=== PATIENT | female | born 1995 | race Caucasian/White ===

== ENCOUNTER 2017-04-03 10:02 | Emergency (ER) | payer OTHER ==
[~2017-04-03] VITALS: Ht 149.9 cm; Wt 45.0 kg
[2017-04-03 10:17] VITALS: Ht 149.9 cm; Wt 45.0 kg
[2017-04-03] MEDS ORDERED: ACETAMINOPHEN 500 MG TAB PO STA (12:10)
--- NOTE | 2017-04-03 12:17 | ERD ---
ER Documentation Chief Complaint Date/Time DATE: 04/03/17 TIME: 12:14 Chief Complaint PELVIC PAIN , 9 WEEKS PREG , LMP 01/14/17 HPI This 21-year-old female who presents to the emergency department today complaining of pelvic pain for the past 3 weeks. Patient states the pain is worse with walking. States she also has a low back pain. States she is approximate 10 weeks . States she saw her [facility] clinic and was told that was normal and had a normal ultrasound. States she has some nausea but no vomiting. She is not taking any medication for the pain because "I was told was normal". Denies any vaginal bleeding. Denies any fevers or chills, dysuria. ROS All systems reviewed and are negative except as per history of present illness. Medications Home Meds Active Scripts Acetaminophen* (Tylophen*) 500 Mg Capsule, 1 CAP PO Q6H Y for PAIN AND OR ELEVATED TEMP, #30 CAP Prov:NICK AZEVEDO PA-C 04/03/17 Allergies Allergies: Coded Allergies: No Known Drug Allergies (Verified Allergy, Unknown, 01/28/15) PMhx/Soc Hx Alcohol Use: No Hx Substance Use: No Hx Tobacco Use: No Physical Exam Vitals Vital Signs Date Time Temp Pulse Resp B/P Pulse Ox O2 Delivery O2 Flow Rate FiO2 04/03/17 10:17 98.1 102 18 131/70 98 Physical Exam Const: No acute distress Head: Atraumatic Eyes: Normal Conjunctiva ENT: Normal External Ears, Nose and Mouth. Neck: Full range of motion..~ No meningismus. Resp: Clear to auscultation bilaterally Cardio: Regular rate and rhythm, no murmurs Abd: Soft, suprapubic tenderness non distended. Normal bowel sounds. No right lower quadrant pain. No tenderness at McBurney's Skin: No petechiae or rashes Back: Lumbar spine midline tenderness with bilateral paraspinal tenderness. No CVA tenderness. Ext: No cyanosis, or edema Neur: Awake and alert Psych: Normal Mood and Affect Result Diagram: 04/03/17 1245 Results 24 hrs Laboratory Tests Test 04/03/17 12:40 04/03/17 12:45 Urine Color LT. YELLOW Urine Clarity CLEAR Urine pH 6.0 Urine Specific [place] >=1.030 Urine Ketones 3+ Urine Nitrite NEGATIVE Urine Bilirubin NEGATIVE Urine Urobilinogen 0.2 E.U./dL Urine Leukocyte Esterase NEGATIVE Urine Microscopic RBC 2-5/HPF Urine Microscopic WBC 5-10/HPF Urine Epithelial Cells MODERATE Urine Bacteria MANY Urine Hemoglobin NEGATIVE Urine Glucose NEGATIVE% Urine Total Protein 1+ White Blood Count 6.510^3/ul Red Blood Count 4.1810^6/ul Hemoglobin 12.5g/dl Hematocrit 37.4% Mean Corpuscular Volume 89.5fl Mean Corpuscular Hemoglobin 29.9pg Mean Corpuscular Hemoglobin Concent 33.4g/dl Red Cell Distribution Width 14.1% Platelet Count 89045^3/UL Mean Platelet Volume 10.2fl Neutrophils % 80.1% Lymphocytes % 13.7% Monocytes % 4.6% Eosinophils % 0.9% Basophils % 0.5% Nucleated Red Blood Cells % 0.0/100WBC Neutrophils # 5.210^3/ul Lymphocytes # 0.910^3/ul Monocytes # 0.310^3/ul Eosinophils # 0.110^3/ul Basophils # 0.010^3/ul Nucleated Red Blood Cells # 0.010^3/ul Beta HCG, Quantitative 71308.0mIU/ml Current Medications Medications (Trade) Dose Ordered Sig/Althea Route PRN Reason Start Time Stop Time Status Last Admin Dose Admin Acetaminophen (Tylenol Tab) 500 mg ONCE STAT PO 04/03/17 12:10 04/03/17 12:12 DC 04/03/17 12:39 DIAGNOSTIC IMAGING REPORT Patient: JAYLA BALDWIN : 1995 Age: 21 Sex: F MR #: [id number] DOS: 04/03/17 1210 Ordering MD: NICK AZEVEDO PA-C Location: E Room/Bed: PROCEDURE: US Obstetric less than 14 weeks. CLINICAL INDICATION: , pelvic pain TECHNIQUE: Transabdominal imaging of the pelvis was performed. Images are reviewed on a high-resolution PACS workstation. COMPARISON: None available FINDINGS: Single intrauterine gestation is identified. heart rate is 168 bpm. [place]-rump length = 4.96 cm. Gestational age is 11 weeks 2 days and DANITA is 10/21/2017 by ultrasound criteria. Gestational age is 11 weeks 4 days and DANITA is 10/19/2017 by LMP. Bilateral ovaries are obscured by bowel gas. No adnexal mass or pelvic free fluid is seen. IMPRESSION: 1. Single live intrauterine with an estimated gestational age of 11 weeks 2 days by ultrasound criteria, as above. RPTAT: AA .Johnny Bradley MD, MD Date Time Electronically viewed and signed by .Johnny Bradley MD, MD on 04/03/2017 12: 47 .R/ CC: NICK AZEVEDO PA-C Procedures/[facility] This 21-year-old female who presents the emergency department today for pelvic pain for the past 3 weeks that is worse with walking as well as some low back pain patient indicates she is presently 10 weeks . Patient is afebrile and otherwise well-appearing however given patient 10 weeks I did obtain a complete OB workup. Laboratory work shows no elevated white blood cell count. She is not anemic. Platelets are within normal limits. UA is negative for infection Rh status O+ Beta quant hCG 19379.0 Ultrasound shows a single live intrauterine with estimated gestational age of 11 weeks and 2 days by ultrasound criteria. There are no adnexal masses or pelvic free fluid. Bilateral ovaries are obscured by bowel gas. heart rate is 168. Patient has pelvic pain of uncertain etiology. Low suspicion for ectopic , tubo-ovarian abscess, ovarian torsion. Patient has no right lower quadrant pain and no tenderness McBurney's. Low suspicion for acute surgical abdomen her symptoms may be related to related pains given her back pain as well. Patient was given Tylenol here in the emergency department and pain improved. She declined any medication for nausea or vomiting stating that she had some at home. Patient instructed to follow back up with her [facility] At this time the patient is stable for discharge and outpatient management. Patient should follow up with their PCP in the next 1-2 days. They may return to the emergency department sooner for any persistent or worsening of symptoms. Patient understood and agreed with the plan. Departure Diagnosis: Primary Impression: Pelvic pain during in first trimester, antepartum Condition: Fair NICK AZEVEDO. PA-C April 03, 2017 12:17
--- NOTE | 2017-04-03 12:48 | RADRPT ---
PROCEDURE: US Obstetric less than 14 weeks. CLINICAL INDICATION: , pelvic pain TECHNIQUE: Transabdominal imaging of the pelvis was performed. Images are reviewed on a high-reso [employer] PACS workstation. COMPARISON: None available FINDINGS: Single intrauterine gestation is identified. heart rate is 168 bpm. [place]-rump length = 4.96 cm. Gestational age is 11 weeks 2 days and DANITA is 10/21/2017 by ultrasound criteria. Gestational age is 11 weeks 4 days and DANITA is 10/19/2017 by LMP. Bilateral ovaries are obscured by bowel gas. No adnexal mass or pelvic free fluid is seen. IMPRESSION: 1. Single live intrauterine with an estimated gestational age of 11 weeks 2 days by ultra sound criteria, as above. RPTAT: AA .Johnny Bradley MD, Date Time Electronically viewed and signed by .Johnny Bradley MD, on 04/03/2017 12:47 .R/
[2017-04-03 12:56] LABS: ADD SCAN DIFF NO
[2017-04-03 12:58] LABS: BASOPHILS % 0.5 % (0.0-2.0); EOSINOPHILS # 0.1 10^3/ul (0.0-0.5); EOSINOPHILS % 0.9 % (0.0-7.0); HEMATOCRIT 37.4 % (37.0-47.0); HEMOGLOBIN 12.5 g/dl (12.0-16.0); LYMPHOCYTES # 0.9 10^3/ul (0.8-2.9); LYMPHOCYTES % 13.7 % (15.0-51.0); MEAN CORPUSCULAR HEMOGLOBIN 29.9 pg (29.0-33.0); MEAN CORPUSCULAR HGB CONC 33.4 g/dl (32.0-37.0); MEAN CORPUSCULAR VOLUME 89.5 fl (82.0-101.0); MEAN PLATELET VOLUME 10.2 fl (7.4-10.4); MONOCYTE # 0.3 10^3/ul (0.3-0.9); MONOCYTES % 4.6 % (0.0-11.0); NEUTROPHIL # 5.2 10^3/ul (1.6-7.5); NEUTROPHILS % 80.1 % (39.0-77.0); PLATELET COUNT 290 10^3/UL (140-415); RED BLOOD COUNT 4.18 10^6/ul (4.20-5.40); RED CELL DISTRIBUTION WIDTH 14.1 % (11.5-14.5); WHITE BLOOD COUNT 6.5 10^3/ul (4.8-10.8)
[2017-04-03 12:58] LABS: ADD UMIC YES; URINE BILIRUBIN (Dip) NEGATIVE (NEGATIVE); URINE BLOOD (Dip) NEGATIVE (NEGATIVE); URINE COLOR LT. YELLOW (YELLOW); URINE GLUCOSE (Dip) NEGATIVE (NEGATIVE); URINE KETONES (Dip) 3+ (NEGATIVE); URINE LEUKOCYTE ESTERASE (Dip) NEGATIVE (NEGATIVE); URINE NITRITE (Dip) NEGATIVE (NEGATIVE); URINE TOTAL PROTEIN (Dip) 1+ (NEGATIVE); URINE UROBILINOGEN (Dip) 0.2 E.U./dL (0.1-1.0)
[2017-04-03 13:07] LABS: BACTERIA,URINE MANY
[2017-04-03] MEDS ORDERED: ACET500C5 PO (14:27)
== END 2017-04-03 14:38 | disposition home or self-care (01) ==
LOC: FTE 10:02
DX: O26.891 Other specified pregnancy related conditions, first trimester (principal); R10.2 Pelvic and perineal pain; Z3A.11 11 weeks gestation of pregnancy
CPT/HCPCS: 36415; 76801; 81001; 84702; 85025; 86900; 86901; Z7502; Z7610; 81003

== ENCOUNTER 2017-08-21 10:08 | Inpatient (IN) | payer OTHER ==
[~2017-08-21] VITALS: Ht 177.8 cm; Wt 87.7 kg
[~2017-08-21 10:08] MED LIST: ACET500C5 PO
[2017-08-21 10:24] VITALS: BP 110/55; PULSE 84; RESP 20; BMI 23.1
--- NOTE | 2017-08-21 10:35 | RADRPT ---
PROCEDURE: OB ultrasound for biophysical profile CLINICAL INDICATION: Contractions TECHNIQUE: Multiple sonographic images of the pelvis were obtained. Transabdominal views of the g ravid uterus are available for review. The images were reviewed on a PACS workstation. COMPARISON: None FINDINGS: breathing movement = 2/2 tone = 2/2 motion = 2/2 BRITTNI = 2/2 BRITTNI = 14.4 cm Single live intrauterine with cardiac activity of 148 bpm. position is cephal ic. The placenta is posterior. IMPRESSION: 1. Single live intrauterine gestation. 2. Biophysical profile = 8. 3. BRITTNI = 14.4 cm. RPTAT: HH .Zuleima Mora MD, MD Date Time Electronically viewed and signed by .Zuleima Mora MD, on 08/21/2017 10:35 .G/
[2017-08-21 10:53] LABS: ADD UMIC YES; UR ASCORBIC ACID NEGATIVE (NEGATIVE); UR BACTERIA FEW /HPF (NONE SEEN); UR BILIRUBIN (Dip) NEGATIVE (NEGATIVE); UR BLOOD (Dip) NEGATIVE (NEGATIVE); UR CLARITY SLIGHTLY CLOUDY (CLEAR); UR COLOR YELLOW (YELLOW); UR GLUCOSE (Dip) NEGATIVE (NEGATIVE); UR KETONES (Dip) NEGATIVE (NEGATIVE); UR LEUKOCYTE ESTERASE (Dip) 2+ Leu/ul (NEGATIVE); UR MUCUS FEW /HPF (NONE SEEN); UR NITRITE (Dip) NEGATIVE (NEGATIVE); UR RBC 1 /HPF (0-5); UR SPECIFIC GRAVITY (Dip) 1.008 (1.003-1.030); UR SQUAMOUS EPITHELIAL CELL FEW /HPF (FEW); UR TOTAL PROTEIN (Dip) NEGATIVE (NEGATIVE); UR UROBILINOGEN (Dip) NEGATIVE (NEGATIVE)
--- NOTE | 2017-08-21 12:18 | RADRPT ---
PROCEDURE: CERVICAL LENGTH ULTRASOUND CLINICAL INDICATION: Contractions at 31 weeks gestational age. TECHNIQUE: Trans-vaginal imaging of the cervical canal was performed utilizing potts-scale imaging. Sagittal and transverse images were obtained. Trans-abdominal images were also obtained. The tonia ges were reviewed on a PACS workstation. COMPARISON: None. FINDINGS: There is a single live intrauterine . heart rate is 151 beats per minute. Position is cephalic and placenta is posterior grade 1. There is no placenta previa. The cervix is closed with a length of 0.9 cm. IMPRESSION: 1. Cervical length is 0.9 cm. RPTAT: QQ .Eduardo Shen MD, MD Date Time Electronically viewed and signed by .Eduardo Shen MD, on 08/21/2017 12:18 .R/
--- NOTE | 2017-08-21 12:41 | TRIAGE ---
OB Triage Datetime Report Generated by CPN: 08/21/2017 12:41 Datetime: 08/21/2017 12:38 Labor Evaluation Frequency: IRREG Monitor Mode: External Quality: Mild Resting Tone [place]: Relaxed Heart Rate FHR Baseline Rate: 145 Monitor Mode: External US FHR Baseline Changes: No Baseline Change Variability: Moderate 6-25 bpm Accelerations: 15X15 Decelerations: None Category: Category I Datetime: 08/21/2017 12:35 Stage of : Antepartum Assessment Type: Admission Assessment Maternal Assessment Level of Consciousness: Fully Conscious DTR's/Clonus: DTRs 2+; No Clonus Headache: Denies Blurred Vision: No Respiratory Effort: Unlabored; Regular Rhythm; Equal Expansion Breath Sounds, Left: Clear and Equal Breath Sounds, Right: Clear and Equal Nausea/Vomiting: Denies RUQ Epigastric Pain: Denies Lower Extremities Edema: None Degree: None Upper Extremities Edema: None Degree: None Facial Edema: None Fall Risk Assessment History of Falling: (0) No Secondary Diagnosis: (0) No Ambulatory Aid: (0) Bedrest/Nurse Assist IV Therapy: (20) Yes Gait: (0) Normal/Bedrest/Immobile Mental Status: (0) Oriented to Own Ability Fall Score: 20 Fall Risk Score Definition: No Risk: No action required Datetime: 08/21/2017 12:31 Time of Arrival: 08/21/2017 10:00 EGA: 31.6 Arrived By: Ambulatory Arrived From: Home Chief Complaint: CRAMPING Movement: Present Contractions: Irregular Vaginal Bleeding: None Vaginal Discharge: Denies Recent Sexual Intercouse: Denies Time Provider Notified: 08/21/2017 11:45 Provider Notified: DR. NGUYEN Initial Plan: CL, BPP , BRITTNI NST Datetime: 08/21/2017 12:24 Labor Evaluation Frequency: IRREG Monitor Mode: External Duration (sec)2399: 40-70 Quality: Mild Pattern: Normal: <= 5 Contractions in 10 Minutes Resting Tone [place]: Relaxed Heart Rate FHR Baseline Rate: 150 Monitor Mode: External US Variability: Moderate 6-25 bpm Accelerations: 15X15 Decelerations: None Category: Category I Datetime: 08/21/2017 10:27 Stage of : OB Triage Assessment Type: Triage Maternal Assessment Level of Consciousness: Fully Conscious DTR's/Clonus: DTRs 2+; No Clonus Headache: Denies Blurred Vision: No Respiratory Effort: Unlabored; Regular Rhythm; Equal Expansion Breath Sounds, Left: Clear and Equal Breath Sounds, Right: Clear and Equal Nausea/Vomiting: Denies RUQ Epigastric Pain: Denies Lower Extremities Edema: None Degree: None Upper Extremities Edema: None Facial Edema: None Temperature Route: Axillary Fall Risk Assessment History of Falling: (0) No Secondary Diagnosis: (0) No Ambulatory Aid: (0) Bedrest/Nurse Assist IV Therapy: (0) No Gait: (0) Normal/Bedrest/Immobile Mental Status: (0) Oriented to Own Ability Fall Score: 0 Fall Risk Score Definition: No Risk: No action required
[2017-08-21] MEDS: LACTATED RINGER'S 1,000 ML IV SCH ×2 (12:51→20:32)
[2017-08-21] MEDS ORDERED: AL HYDROX/MG HYDROX/SIMETH 30 ML CUP PO PRN (13:00)
[2017-08-21] MEDS ORDERED: ONDANSETRON 4 MG INJ IV PRN (13:00)
[2017-08-21] MEDS ORDERED: ACETAMINOPHEN 325 MG TAB PO PRN (13:00)
[2017-08-21] MEDS ORDERED: MAGNESIUM SULFATE 4 GM/100 ML 100 ML IV ONE (13:00)
[2017-08-21] MEDS: AMPICILLIN 2 GM/NS (PMX) 100 ML IV SCH ×2 (13:14→18:08)
[2017-08-21] MEDS: BETAMET NA PHOS/AC(6 MG/ML) 5ML INJ IM SCH (13:18)
[2017-08-21] MEDS: MAGNESIUM SULFATE 20 GM/500 ML 500 ML IV SCH (13:32)
[2017-08-21 15:31] LABS: ALBUMIN 3.4 g/dl (3.3-4.9); ALBUMIN/GLOBULIN RATIO 1.06; BILIRUBIN,INDIRECT 0.7 mg/dl (0-1.1); BILIRUBIN,TOTAL 0.7 mg/dl (0.2-1.3); CALCIUM 7.9 mg/dl (8.4-10.2); CREATININE 0.42 mg/dl (0.44-1.00); TOTAL PROTEIN 6.6 g/dl (6.1-8.1)
[2017-08-21 15:48] LABS: BARBITURATES Negative (NEGATIVE); BENZODIAZEPINES Negative (NEGATIVE); CANNABINOIDS Negative (NEGATIVE); COCAINE Negative (NEGATIVE); OPIATES Negative (NEGATIVE)
[2017-08-21 17:13] LABS: BASOPHILS % 0.2 % (0.0-2.0); EOSINOPHILS # 0.1 10^3/ul (0.0-0.5); EOSINOPHILS % 1.8 % (0.0-7.0); HEMATOCRIT 30.9 % (37.0-47.0); HEMOGLOBIN 10.3 g/dl (12.0-16.0); LYMPHOCYTES # 1.2 10^3/ul (0.8-2.9); LYMPHOCYTES % 21.2 % (15.0-51.0); MEAN CORPUSCULAR HEMOGLOBIN 30.2 pg (29.0-33.0); MEAN CORPUSCULAR HGB CONC 33.3 g/dl (32.0-37.0); MEAN CORPUSCULAR VOLUME 90.6 fl (82.0-101.0); MEAN PLATELET VOLUME 11.3 fl (7.4-10.4); MONOCYTE # 0.4 10^3/ul (0.3-0.9); MONOCYTES % 6.9 % (0.0-11.0); NEUTROPHIL # 3.8 10^3/ul (1.6-7.5); NEUTROPHILS % 69.7 % (39.0-77.0); PLATELET COUNT 232 10^3/UL (140-415); RED BLOOD COUNT 3.41 10^6/ul (4.20-5.40); RED CELL DISTRIBUTION WIDTH 12.9 % (11.5-14.5); WHITE BLOOD COUNT 5.5 10^3/ul (4.8-10.8)
--- NOTE | 2017-08-21 18:06 | HP ---
Date/Time of Note Date/Time of Note DATE: 08/21/17 TIME: 18:05 OB - History Hx of Present Free Text/Dictation pt co of ucx q 10 min nmo LOF no bleeding pmh non psh c/s x2 : 3 Para: 2 Care: Good Care Ultrasounds: Normal mid trimester US Past Family/Social History * Past Medical, Surgical, Family and Obstetric Histories reviewed from chart. OB Admission Exam Vital Signs Vital Signs Vital Signs Date Time Temp Pulse Resp B/P Pulse Ox O2 Delivery O2 Flow Rate FiO2 08/21/17 10:24 98.1 84 20 110/55 Room Air Physical Exam HEENT: WNL Heart: Rhythm Normal Extremities: Normal Reflexes: Normal Last 72 hours Lab Results CBC & BMP 08/21/17 14:00 Liver Function Test 08/21/17 14:00 Alanine Aminotransferase (ALT/SGPT) 29 Albumin 3.4 Alkaline Phosphatase 134 H Aspartate Amino Transf (AST/SGOT) 16 Direct Bilirubin 0.00 Total Protein 6.6 OB Assessment/Plan Reason for admission: labor Plan: Other Other plan: iup 31.6 with ucx and short cervix .9 cm admit for laboer, mgso4, bms and amp ho of c/section X2 RANDI NGUYEN MD Aug 21, 2017 18:06
[2017-08-22] MEDS: AMPICILLIN 2 GM/NS (PMX) 100 ML IV SCH ×4 (01:19→18:16)
[2017-08-22] MEDS: MAGNESIUM SULFATE 20 GM/500 ML 500 ML IV SCH ×2 (01:22→10:03)
[2017-08-22] MEDS: LACTATED RINGER'S 1,000 ML IV SCH ×2 (02:21→18:17)
[2017-08-22] MEDS: FERROUS SULFATE (EC) 325 MG TAB PO SCH (09:08)
[2017-08-22] MEDS: PRENATAL VITAMIN PO SCH (09:08)
[2017-08-22] MEDS: BETAMET NA PHOS/AC(6 MG/ML) 5ML INJ IM SCH (13:37)
[2017-08-22 19:17] VITALS: Ht 177.8 cm; Wt 87.7 kg
--- NOTE | 2017-08-22 19:39 | CONS ---
DATE OF ADMISSION: 08/21/2017 DATE OF CONSULTATION: 08/22/2017 CONSULT HISTORY OF PRESENT ILLNESS: I was requested to talk to Izzy Gregory to explain problems about prematurity around 31-2/7 weeks by the mother's non destructive testing supervisor, Dr. Vázquez. Mom is admitted on 08/21 for labor and she has received two doses of betamethasone so far, and is on antibiotics and magnesium sulfate with intermittent contractions. Mom is a woman, speaks only [place] and I have used division human resources manager to explain her problems and answer her questions. She is 4, para 3, and her three other deliveries were around 37 and 38 weeks. She is Rh positive, RPR non-reactive, hepatitis B surface antigen negative, HIV negative, and GBS unknown. She has no fever and her urine culture is positive for gram-negative rods. I have explained to the mother about prematurity at 31-32 weeks, low weight and very low weight babies, survival rate greater than 90%, risk for intercurrent infections and need for IV antibiotic therapy, risk for respiratory distress syndrome, ventilator assistance, possibility of air leaks and chest tube placement, risk for chronic lung disease, feeding problems of prematurity with increased residuals and necrotizing enterocolitis, jaundice requiring further therapy, risk for intraventricular hemorrhage, risk for long-term neurodevelopmental problems including but not limited to delayed milestones, low intelligence, school problems, cerebral palsy, and genital treatment plan and genital procedures done in NICU. I reiterated the importance of breast milk in baby's nutrition. Mom seems to understand the risk and she has had appropriate questions and concerns that were addressed. I thank you very much for allowing me to take part in the care of this patient. Will follow the mom and attend the delivery and take care of the baby as needed. Dictated By: Gloria Cortez MD /nadia/sarina /Document#: [id number]
--- NOTE | 2017-08-22 21:28 | CONS ---
DATE OF ADMISSION: 08/21/2017 DATE OF CONSULTATION: 08/22/2017 REASON FOR CONSULTATION: The patient is in intrauterine at 31 weeks and 2 days, who presented yesterday with complaint of contraction. Transvaginal cervical length is 0.9 cm. She is currently on magnesium sulfate, receiving betamethasone. Recommendations are continue with the magnesium sulfate 24 hours after the second dose of betamethasone. After that, please discontinue. After 4 to 6 hours start Procardia 25 mg every 6 hours if blood pressures allow. INHOUSE MANAGEMENT: [____] until 34 weeks is recommended. A full consult will be done tomorrow. Dictated By: Cecilia Pantoja MD /nadia/joanne /Document#: [id number]
[2017-08-23] MEDS: AMPICILLIN 2 GM/NS (PMX) 100 ML IV SCH ×4 (00:15→18:02)
[2017-08-23] MEDS: MAGNESIUM SULFATE 20 GM/500 ML 500 ML IV SCH (05:30)
[2017-08-23] MEDS: LACTATED RINGER'S 1,000 ML IV SCH ×2 (07:38→22:23)
[2017-08-23] MEDS: FERROUS SULFATE (EC) 325 MG TAB PO SCH (09:26)
[2017-08-23] MEDS: PRENATAL VITAMIN PO SCH (09:26)
[2017-08-23] MEDS: ACCU-CHEK XX SCH ×3 (10:52→20:05)
[2017-08-23] MEDS: NIFEdipine 10 MG CAP PO SCH ×2 (14:04→19:16)
--- NOTE | 2017-08-23 18:17 | QN ---
Documentation Comment Vital signs are stable Completed 2 doses of steroids currently on Procardia 20 mg every 6 hours, She has occasional contractions heart rate category 1 she is on ampicillin fo 2 g every 6 hours urine culture positive for E. coli. Sensitive to ampicillin, will continue present treatment. SURESH BURGESS MD Aug 23, 2017 18:17
[2017-08-24] MEDS: NIFEdipine 10 MG CAP PO SCH ×4 (00:01→17:38)
[2017-08-24] MEDS: AMPICILLIN 2 GM/NS (PMX) 100 ML IV SCH ×3 (05:28→12:15)
[2017-08-24] MEDS: ACCU-CHEK XX SCH ×2 (08:45→11:15)
[2017-08-24] MEDS: PRENATAL VITAMIN PO SCH (09:33)
[2017-08-24] MEDS: FERROUS SULFATE (EC) 325 MG TAB PO SCH (09:33)
[2017-08-24] MEDS: LACTATED RINGER'S 1,000 ML IV SCH (11:47)
[2017-08-24] MEDS: AMOXICILLIN 500 MG CAP PO SCH ×2 (14:40→22:10)
--- NOTE | 2017-08-24 17:40 | QN ---
Documentation Comment VITAL SIGNS ARE STABLE AFEBRILE, HAS FEW CONT. QH MOSTLY NOT FELT .DENIES BACK PAIN OR LOWER ABDOMINAL PRESSURE URINE CULTURE POS.FOR E COLI ,SHE IS GETTING AMOXICILLIN Q8H PO,FOLLOWING 3 DAYS OF IV AMPICILLIN . SURESH BURGESS MD Aug 24, 2017 17:40
[2017-08-25] MEDS: NIFEdipine 10 MG CAP PO SCH ×4 (00:08→18:21)
[2017-08-25] MEDS: AMOXICILLIN 500 MG CAP PO SCH ×3 (06:02→21:45)
[2017-08-25] MEDS: FERROUS SULFATE (EC) 325 MG TAB PO SCH (09:14)
[2017-08-25] MEDS: PRENATAL VITAMIN PO SCH (09:14)
--- NOTE | 2017-08-25 18:06 | QN ---
Documentation Comment vss few mild contractions ,not felt us report cervical length.9cm ,will repeat am SURESH BURGESS MD Aug 25, 2017 18:06
[2017-08-26] MEDS: NIFEdipine 10 MG CAP PO SCH ×5 (01:23→23:58)
[2017-08-26] MEDS: AMOXICILLIN 500 MG CAP PO SCH ×3 (06:41→22:11)
[2017-08-26] MEDS: PRENATAL VITAMIN PO SCH ×2 (09:08→09:09)
[2017-08-26] MEDS: FERROUS SULFATE (EC) 325 MG TAB PO SCH ×2 (09:08→09:09)
--- NOTE | 2017-08-26 09:24 | RADRPT ---
PROCEDURE: CERVICAL LENGTH ULTRASOUND CLINICAL INDICATION: Short cervix. TECHNIQUE: Trans-vaginal imaging of the cervical canal was performed utilizing potts-scale imaging. Sagittal and transverse images were obtained. Trans-abdominal images were also obtained. The tonia ges were reviewed on a PACS workstation. COMPARISON: 08/21/2017. FINDINGS: There is a single live intrauterine . heart rate is 146 beats per minute. Position is cephalic and placenta is posterior grade 1. There is no placenta previa. The cervix is closed with a length of 0.6 cm. IMPRESSION: 1. Cervical length is 0.6 cm. RPTAT: QQ .Eduardo Shen MD, MD Date Time Electronically viewed and signed by .Eduardo Shen MD, on 08/26/2017 09:24 .R/
[2017-08-26 16:43] VITALS: BP 99/50; RESP 20
[2017-08-27] MEDS: NIFEdipine 10 MG CAP PO SCH ×4 (06:08→23:56)
[2017-08-27] MEDS: AMOXICILLIN 500 MG CAP PO SCH ×3 (06:09→21:59)
[2017-08-27] MEDS: PRENATAL VITAMIN PO SCH (09:03)
[2017-08-27] MEDS: FERROUS SULFATE (EC) 325 MG TAB PO SCH (09:03)
--- NOTE | 2017-08-27 11:25 | QN ---
Documentation Comment vss few cont. per hour,not felt , cervical length,.6cm changed from .9cm,she is on ([id number] MG Q6H) we will continue present treatment . SURESH BURGESS MD Aug 27, 2017 11:25
[2017-08-28] MEDS: AMOXICILLIN 500 MG CAP PO SCH ×3 (05:48→21:30)
[2017-08-28] MEDS: NIFEdipine 10 MG CAP PO SCH ×3 (05:49→18:06)
[2017-08-28] MEDS: FERROUS SULFATE (EC) 325 MG TAB PO SCH (09:05)
[2017-08-28] MEDS: PRENATAL VITAMIN PO SCH (09:05)
--- NOTE | 2017-08-28 09:16 | QN ---
Documentation Comment vss resting in bed ,has some contraction mostly not felt ,she is on [id number] q 6 h,will repeat us for cervical change SURESH BURGESS MD Aug 28, 2017 09:16
--- NOTE | 2017-08-28 10:03 | RADRPT ---
PROCEDURE: Limited obstetric ultrasound CLINICAL INDICATION: Pain , short cervix TECHNIQUE: Multiple transverse and longitudinal grayscale images of the pelvis were obtained [place] sabdominally and transvaginally.. COMPARISON: US 08/26/2017 FINDINGS: The cervix is dilated to 0.3 cm. The cervix length measures 2.4 cm. There is a single viable intrauterine gestation. Cardiac activity is present with 135 beats per min [place]. There is a vertex presentation. The placenta is posterior. There is no evidence for an abruption or placenta previa. RPTAT: AA IMPRESSION: Cervix length measures 2.4 cm. Cervix is dilated measuring 0.3 cm. .Aryan Carter MD, MD Date Time Electronically viewed and signed by .Aryan Carter MD, MD on 08/28/2017 10:03 .S/
[2017-08-29] MEDS: NIFEdipine 10 MG CAP PO SCH ×4 (00:09→17:59)
[2017-08-29] MEDS: AMOXICILLIN 500 MG CAP PO SCH ×3 (05:39→21:38)
[2017-08-29] MEDS: PRENATAL VITAMIN PO SCH (08:39)
[2017-08-29] MEDS: FERROUS SULFATE (EC) 325 MG TAB PO SCH (08:39)
--- NOTE | 2017-08-29 17:30 | QN ---
Documentation Comment inconclusive us report steryl ve exam cervical length 1cm,cx 1cm dilated infrequent mild contraction denies feeling them,will continue present expecting management. SURESH BURGESS MD Aug 29, 2017 17:30
[2017-08-30] MEDS: NIFEdipine 10 MG CAP PO SCH ×4 (00:16→17:49)
[2017-08-30] MEDS: AMOXICILLIN 500 MG CAP PO SCH ×3 (06:13→21:44)
[2017-08-30] MEDS: FERROUS SULFATE (EC) 325 MG TAB PO SCH (09:32)
[2017-08-30] MEDS: PRENATAL VITAMIN PO SCH (09:33)
--- NOTE | 2017-08-30 10:12 | QN ---
Documentation Comment afebrile vss few none felt contraction per hour ,we will continue expecting management SURESH BURGESS MD Aug 30, 2017 10:12
[2017-08-30 11:49] LABS: BASOPHILS % 0.3 % (0.0-2.0); EOSINOPHILS # 0.1 10^3/ul (0.0-0.5); EOSINOPHILS % 1.5 % (0.0-7.0); HEMATOCRIT 29.7 % (37.0-47.0); HEMOGLOBIN 9.6 g/dl (12.0-16.0); LYMPHOCYTES # 1.2 10^3/ul (0.8-2.9); MEAN CORPUSCULAR HEMOGLOBIN 29.3 pg (29.0-33.0); MEAN CORPUSCULAR HGB CONC 32.3 g/dl (32.0-37.0); MEAN CORPUSCULAR VOLUME 90.5 fl (82.0-101.0); MEAN PLATELET VOLUME 10.4 fl (7.4-10.4); MONOCYTE # 0.4 10^3/ul (0.3-0.9); MONOCYTES % 7.3 % (0.0-11.0); NEUTROPHIL # 4.2 10^3/ul (1.6-7.5); NEUTROPHILS % 69.6 % (39.0-77.0); PLATELET COUNT 234 10^3/UL (140-415); RED BLOOD COUNT 3.28 10^6/ul (4.20-5.40); RED CELL DISTRIBUTION WIDTH 13.9 % (11.5-14.5)
[2017-08-31] MEDS: NIFEdipine 10 MG CAP PO SCH ×5 (00:27→23:49)
[2017-08-31] MEDS: AMOXICILLIN 500 MG CAP PO SCH ×2 (05:55→13:55)
[2017-08-31] MEDS: PRENATAL VITAMIN PO SCH (09:05)
[2017-08-31] MEDS: FERROUS SULFATE (EC) 325 MG TAB PO SCH (09:05)
--- NOTE | 2017-08-31 09:38 | QN ---
Documentation Comment 32WEEKS 5/7 DAY RESTING ,NOT FILING ANY CONTRACTION, ON PROCARDIA 20MG Q 6 H WE WILL CONTINUE PRESENT TREATMENT. SURESH BURGESS MD Aug 31, 2017 09:38
[2017-09-01] MEDS: NIFEdipine 10 MG CAP PO SCH ×4 (06:12→23:59)
[2017-09-01] MEDS: FERROUS SULFATE (EC) 325 MG TAB PO SCH (08:50)
[2017-09-01] MEDS: PRENATAL VITAMIN PO SCH (08:50)
--- NOTE | 2017-09-01 10:02 | QN ---
Documentation Comment VSS Afebrile Resting in bed occasional contraction but not felt would continue present expecting management SURESH BURGESS MD Sep 01, 2017 10:02
[2017-09-02] MEDS: NIFEdipine 10 MG CAP PO SCH ×4 (05:59→23:56)
[2017-09-02] MEDS: PRENATAL VITAMIN PO SCH (08:39)
[2017-09-02] MEDS: FERROUS SULFATE (EC) 325 MG TAB PO SCH (08:39)
--- NOTE | 2017-09-02 12:39 | QN ---
Documentation Comment VSS Febrile Resting in bed, denies contraction will continue expecting management SURESH BURGESS MD Sep 02, 2017 12:39
[2017-09-03] MEDS: NIFEdipine 10 MG CAP PO SCH ×3 (06:03→17:32)
[2017-09-03] MEDS: PRENATAL VITAMIN PO SCH (08:35)
[2017-09-03] MEDS: FERROUS SULFATE (EC) 325 MG TAB PO SCH (08:36)
--- NOTE | 2017-09-03 13:39 | QN ---
Documentation Comment 33+ wks GA labor No VB +FM VS stable Gen NAD NST reassuring [place] No CTXs Pelvic Defeered --->possible discharge at 34 wks --->Close Observation RAMONITA BABIN M.D. Sep 03, 2017 13:39
[2017-09-04] MEDS: NIFEdipine 10 MG CAP PO SCH ×4 (00:36→17:29)
[2017-09-04] MEDS: FERROUS SULFATE (EC) 325 MG TAB PO SCH (08:51)
[2017-09-04] MEDS: PRENATAL VITAMIN PO SCH (08:51)
--- NOTE | 2017-09-04 10:39 | QN ---
Documentation Comment vss afebrile resting resting ,plan of am discharge discussed. SURESH BURGESS MD Sep 04, 2017 10:39
[2017-09-05] MEDS: NIFEdipine 10 MG CAP PO SCH ×5 (00:05→23:38)
[2017-09-05] MEDS: FERROUS SULFATE (EC) 325 MG TAB PO SCH (09:22)
[2017-09-05] MEDS: PRENATAL VITAMIN PO SCH (09:23)
--- NOTE | 2017-09-05 16:26 | QN ---
Documentation Comment CORRECTED GESTATIONAL AGE 33WEEKS /7 ,RESTING IN BED DENIES FLEEING ANY CONTRACTION , WILL CONSIDERED POSSIBLE DISCHARGE AT 34 WEEKS SURESH BURGESS MD Sep 05, 2017 16:26
[2017-09-06] MEDS: NIFEdipine 10 MG CAP PO SCH ×3 (05:57→17:54)
[2017-09-06] MEDS: PRENATAL VITAMIN PO SCH (08:42)
[2017-09-06] MEDS: FERROUS SULFATE (EC) 325 MG TAB PO SCH (08:42)
--- NOTE | 2017-09-06 17:56 | QN ---
Documentation Comment VSS 33 weeks and 4 day ,occasional mild contraction not felt We will continue expecting management SURESH BURGESS MD Sep 06, 2017 17:56
[2017-09-07] MEDS: NIFEdipine 10 MG CAP PO SCH ×4 (00:02→18:11)
[2017-09-07] MEDS: PRENATAL VITAMIN PO SCH (09:37)
[2017-09-07] MEDS: FERROUS SULFATE (EC) 325 MG TAB PO SCH (09:37)
--- NOTE | 2017-09-07 11:41 | QN ---
Documentation Comment Afebrile Vital signs are stable Denies feeling any contractions We will continue expecting management SURESH BURGESS MD Sep 07, 2017 11:41
[2017-09-08] MEDS: NIFEdipine 10 MG CAP PO SCH ×4 (00:09→17:37)
[2017-09-08] MEDS: PRENATAL VITAMIN PO SCH (09:06)
[2017-09-08] MEDS: FERROUS SULFATE (EC) 325 MG TAB PO SCH (09:06)
--- NOTE | 2017-09-08 10:43 | QN ---
Documentation Comment 33+ wks GA labor No VB +FM VS stable Gen NAD NST reassuring [place] No CTXs Pelvic Defeered --->possible discharge at 34 wks --->Close Observation RAMONITA BABIN M.D. Sep 08, 2017 10:43
[2017-09-09] MEDS: NIFEdipine 10 MG CAP PO SCH ×3 (00:05→12:05)
[2017-09-09] MEDS: PRENATAL VITAMIN PO SCH (08:36)
[2017-09-09] MEDS: FERROUS SULFATE (EC) 325 MG TAB PO SCH (08:36)
--- NOTE | 2017-09-09 11:20 | RADRPT ---
PROCEDURE: Limited obstetric ultrasound CLINICAL INDICATION: Short cervix, pain TECHNIQUE: Multiple transverse and longitudinal grayscale images of the pelvis were obtained leigh sabdominally and transvaginally.. COMPARISON: US 08/28/2017 FINDINGS: The cervix is dilated measuring up to 1 cm. The cervix length measures 2.4 cm. There is a single viable intrauterine gestation. Cardiac activity is present with 152 beats per min [place]. There is a vertex presentation. The placenta is posterior. There is no evidence for an abruption or placenta previa. RPTAT: AA IMPRESSION: Dilated cervix measuring 1 cm, worsened. .Aryan Carter MD, MD Date Time Electronically viewed and signed by .Aryan Carter MD, on 09/09/2017 11:20 .S/
--- NOTE | 2017-09-09 11:49 | QN ---
Documentation Comment vss afebrile mild contraction not felt. cx 3cm 80% effaced vertex ballotable,currently on Procardia had 2 dose of steroids will continue expecting management SURESH BURGESS MD Sep 09, 2017 11:49
[2017-09-09] MEDS ORDERED: MAGNESIUM SULFATE 4 GM/100 ML 100 ML IVPB ONE (14:00)
[2017-09-09] MEDS: LACTATED RINGER'S 1,000 ML IV SCH (14:26)
[2017-09-09 14:43] LABS: BASOPHILS % 0.2 % (0.0-2.0); EOSINOPHILS # 0.1 10^3/ul (0.0-0.5); HEMATOCRIT 33.8 % (37.0-47.0); HEMOGLOBIN 11.5 g/dl (12.0-16.0); LYMPHOCYTES # 0.9 10^3/ul (0.8-2.9); LYMPHOCYTES % 19.1 % (15.0-51.0); MEAN CORPUSCULAR HEMOGLOBIN 31.2 pg (29.0-33.0); MEAN CORPUSCULAR VOLUME 91.6 fl (82.0-101.0); MEAN PLATELET VOLUME 10.5 fl (7.4-10.4); MONOCYTE # 0.3 10^3/ul (0.3-0.9); MONOCYTES % 6.1 % (0.0-11.0); NEUTROPHIL # 3.3 10^3/ul (1.6-7.5); NEUTROPHILS % 71.9 % (39.0-77.0); PLATELET COUNT 241 10^3/UL (140-415); RED BLOOD COUNT 3.69 10^6/ul (4.20-5.40); WHITE BLOOD COUNT 4.6 10^3/ul (4.8-10.8)
[2017-09-09 14:47] LABS: INR 0.92; PROTIME 12.4 Sec (12.2-14.2)
[2017-09-09 14:51] LABS: ALBUMIN 3.6 g/dl (3.3-4.9); ALBUMIN/GLOBULIN RATIO 1.09; BILIRUBIN,INDIRECT 0.7 mg/dl (0-1.1); BILIRUBIN,TOTAL 0.7 mg/dl (0.2-1.3); CREATININE 0.42 mg/dl (0.44-1.00); POTASSIUM 3.6 mmol/L (3.5-5.1); TOTAL PROTEIN 6.9 g/dl (6.1-8.1)
[2017-09-09] MEDS: MAGNESIUM SULFATE 20 GM/500 ML 500 ML IV SCH (14:55)
--- NOTE | 2017-09-09 18:16 | RADRPT ---
PROCEDURE: US OB. CLINICAL INDICATION: Size and dates TECHNIQUE: Multiple sonographic images of the pelvis and gravid uterus were obtained. The images were reviewed on a PACS workstation. COMPARISON: US 09/09/2017; US 08/28/2017 FINDINGS: The cervix was not imaged in the current study. There is a single viable intrauterine gestation. Cardiac activity is present with 131 beats per min [place]. There is a vertex presentation. The placenta is posterior. There is no evidence for an abruption or placenta previa. Measurements were made in order to determine age. The results are as follows: BPD =8.5 cm HC =30.7 cm AC =30.2 cm FL =6.7 cm Estimated gestational age of approximately 34 weeks and 2 days based on ultrasound measurements. The estimated date of delivery is 10/19/2017, based on ultrasound measurements. The EFW = 2390 g RPTAT: AA IMPRESSION: Single viable intrauterine gestation of approximately 32 weeks and 2 days based on ultrasound measu rements. .Aryan Carter MD, Date Time Electronically viewed and signed by .Aryan Carter MD, on 09/09/2017 18:16 .S/
[2017-09-10] MEDS: LACTATED RINGER'S 1,000 ML IV SCH ×3 (01:03→17:57)
[2017-09-10] MEDS: MAGNESIUM SULFATE 20 GM/500 ML 500 ML IV SCH (01:03)
[2017-09-10] MEDS ORDERED: MAGNESIUM SULFATE 4 GM/100 ML 100 ML IVPB ONE (10:30)
[2017-09-10] MEDS ORDERED: ACETAMINOPHEN 500 MG TAB PO PRN (10:30)
[2017-09-10] MEDS ORDERED: ACETAMINOPHEN 325 MG TAB PO PRN (11:00)
[2017-09-10] MEDS: NIFEdipine 10 MG CAP PO SCH ×2 (11:46→17:56)
--- NOTE | 2017-09-10 11:49 | QN ---
Documentation Comment Afebrile Vital signs are within normal per Perinatologist recommendation she was getting magnesium sulfate for contractions, original recommendation was to continue for 24 hour but since she developed intolerance to magnesium sulfate it was discontinued and replaced with Procardia 20 mg every 6 hours since then she only had to mild contraction per hour. SURESH BURGESS MD Sep 10, 2017 11:49
[2017-09-10] MEDS: FERROUS SULFATE (EC) 325 MG TAB PO SCH (17:56)
[2017-09-10] MEDS: PRENATAL VITAMIN PO SCH (17:56)
[2017-09-11] MEDS: NIFEdipine 10 MG CAP PO SCH ×2 (00:15→06:26)
[2017-09-11] MEDS: LACTATED RINGER'S 1,000 ML IV SCH (03:19)
[2017-09-11] MEDS ORDERED: LACTATED RINGER'S 1,000 ML IV PRN (07:00)
[2017-09-11] MEDS ORDERED: LACTATED RINGER'S 1,000 ML IV SCH (07:47)
[2017-09-11] MEDS ORDERED: LIDOCAINE 1% (MPF) 30 ML INJ ONE (07:54)
[2017-09-11] MEDS ORDERED: OXYTOCIN 30 UNITS/LR 500 ML IV ONE (07:54)
[2017-09-11] MEDS ORDERED: AMPICILLIN 2 GM/NS (PMX) 100 ML ONE (07:55)
[2017-09-11] MEDS ORDERED: AMPICILLIN 2 GM/NS (PMX) 100 ML IV ONE (08:00)
[2017-09-11] MEDS ORDERED: OXYTOCIN 30 UNITS/LR 500 ML IV PRN (08:00)
[2017-09-11] MEDS ORDERED: IBUPROFEN 600 MG TAB PO PRN (08:00)
[2017-09-11] MEDS ORDERED: MISOPROSTOL 200 MCG TAB PR PRN (08:00)
[2017-09-11] MEDS ORDERED: BUTORPHANOL 2 MG INJ IV PRN ×2 (08:00)
[2017-09-11] MEDS ORDERED: METHYLERGONOVINE 0.2 MG INJ IM PRN (08:00)
[2017-09-11] MEDS ORDERED: OXYTOCIN 30 UNITS/LR 500 ML IV SCH (08:00)
[2017-09-11] MEDS ORDERED: CARBOPROST 250 MCG INJ IM PRN (08:00)
[2017-09-11] MEDS ORDERED: LIDOCAINE 1% (MPF) 30 ML INJ INJ PRN (08:00)
[2017-09-11] MEDS: OXYTOCIN 30 UNITS/LR 500 ML IV SCH ×4 (09:29→15:09)
--- NOTE | 2017-09-11 09:50 | LDN ---
Date/Time of Note Date/Time of Note DATE: 09/11/17 TIME: 09:40 Delivery Summary 22 years old female EDC October 21, 2017 has been hospitalized as of August 21, 2017 for labor and was treated for labor, day prior to delivery patient was on magnesium sulfate that was discontinued and replaced with Procardia recommended by the perinatology as of early this morning patient contractions became more regular and stronger and her cervix progress from 3-4 cm 100% effaced to 7 cm and in short period was completely dilated, she had uneventful normal spontaneous vaginal delivery of a baby boy 9 and 9 cord was clamped after stopped pulsation, placenta spontaneous expulsion inspected complete and sent to pathology, perineal vaginal inspection postdelivery negative for any laceration, estimated blood loss 250 cc,. Weeks of Gestation 34 weeks and 1 day Placenta Delivered: Spontaneously Meconium: none Episiotomy: No Laceration repair: None Anesthesia type: None Sponge & Needle done & correct: Yes All needle counts correct: Yes Any foreign bodies felt in the: No Problems: Infant Delivery Information Sex Infant Sex: male Apgars 1 Minute: 9 5 Minute: 9 Suctioning Nose & mouth suctioned at krishna: Yes Delee suction performed: No Umbilical Cord Umbilical cord with: 3 Vessels Cord Blood was obtained: No SURESH BURGESS MD Sep 11, 2017 09:50
[2017-09-11 10:20] VITALS: BP 104/67; PULSE 65; RESP 18
[2017-09-11 10:50] VITALS: BP 108/63; PULSE 68; RESP 19
[2017-09-11] MEDS ORDERED: OXYCODONE/ASPIRIN (4.88/325) TAB PO PRN ×2 (11:30)
[2017-09-11] MEDS ORDERED: BENZOCAINE 20% 56 ML SPRAY TOP PRN (11:30)
[2017-09-11] MEDS ORDERED: ACETAMINOPHEN 325 MG TAB PO PRN (11:30)
[2017-09-11] MEDS ORDERED: LANOLIN 7 GM TUBE TOP PRN (11:30)
[2017-09-11] MEDS ORDERED: WITCH HAZEL/GLYCERIN PAD PR PRN (11:30)
[2017-09-11] MEDS ORDERED: DIBUCAINE 1% 30 GM OINT PR PRN (11:30)
[2017-09-11] MEDS ORDERED: HYDROCODONE/APAP (5/325) TAB PO PRN ×2 (11:30)
[2017-09-11] MEDS ORDERED: ONDANSETRON 4 MG INJ IV PRN (11:30)
[2017-09-11] MEDS: IBUPROFEN 600 MG TAB PO SCH ×2 (11:56→18:28)
[2017-09-11] MEDS ORDERED: AMPICILLIN 1 GM/NS (PMX) 50 ML IV SCH (12:00)
[2017-09-11 16:00] VITALS: BP 103/64; PULSE 74; RESP 19
[2017-09-11 19:35] VITALS: BP 106/68; PULSE 65; RESP 18
[2017-09-12] VITALS: BP 102/64; PULSE 64; RESP 18
[2017-09-12] MEDS: IBUPROFEN 600 MG TAB PO SCH ×5 (00:01→23:54)
[2017-09-12 04:15] VITALS: BP 99/62; PULSE 66; RESP 16
[2017-09-12 07:50] VITALS: BP 103/67; PULSE 68; RESP 18
[2017-09-12] MEDS: SENNA/DOCUSATE NA (8.6MG/50MG) TAB PO SCH ×2 (09:00→21:00)
[2017-09-12 10:09] LABS: BASOPHILS % 0.4 % (0.0-2.0); EOSINOPHILS # 0.1 10^3/ul (0.0-0.5); EOSINOPHILS % 2.4 % (0.0-7.0); HEMATOCRIT 31.9 % (37.0-47.0); HEMOGLOBIN 10.5 g/dl (12.0-16.0); LYMPHOCYTES # 1.2 10^3/ul (0.8-2.9); LYMPHOCYTES % 26.9 % (15.0-51.0); MEAN CORPUSCULAR HEMOGLOBIN 30.9 pg (29.0-33.0); MEAN CORPUSCULAR HGB CONC 32.9 g/dl (32.0-37.0); MEAN CORPUSCULAR VOLUME 93.8 fl (82.0-101.0); MEAN PLATELET VOLUME 10.4 fl (7.4-10.4); MONOCYTE # 0.3 10^3/ul (0.3-0.9); MONOCYTES % 6.6 % (0.0-11.0); NEUTROPHIL # 2.9 10^3/ul (1.6-7.5); PLATELET COUNT 208 10^3/UL (140-415); RED CELL DISTRIBUTION WIDTH 15.5 % (11.5-14.5); WHITE BLOOD COUNT 4.6 10^3/ul (4.8-10.8)
[2017-09-12 13:10] VITALS: BP 122/70; PULSE 58; RESP 18
[2017-09-12 16:30] VITALS: BP 101/71; PULSE 68; RESP 18
--- NOTE | 2017-09-12 17:13 | QN ---
Documentation Comment day 1 Afebrile vital signs are stable Abdomen soft uterus firm lochia normal Limiting normal End of a.m. discharge discussed with the patient SURESH BURGESS MD Sep 12, 2017 17:13
[2017-09-12 21:30] VITALS: BP 110/78; PULSE 78; RESP 18
[2017-09-13 03:30] VITALS: BP 105/60; PULSE 62; RESP 19
[2017-09-13] MEDS: IBUPROFEN 600 MG TAB PO SCH ×2 (05:45→12:47)
[2017-09-13 08:10] VITALS: BP 101/49; PULSE 60; RESP 17
[2017-09-13] MEDS ORDERED: MEASLES,MUMPS,RUBELLA VACCINE INJ SC* ONE (09:00)
[2017-09-13] MEDS: SENNA/DOCUSATE NA (8.6MG/50MG) TAB PO SCH (09:00)
--- NOTE | 2017-09-13 14:28 | DS ---
Date/Time of Note Date/Time of Note DATE: 09/13/17 TIME: 14:06 Discharge Summary Admission/Discharge Info Admit Date/Time Aug 21, 2017 at 12:05 Discharge Date/Time September 13, 2017 at 1405 Discharge Diagnosis Post pre-term normal vaginal delivery at 34 weeks Patient Condition: Good Procedures Normal spontaneous vaginal delivery Hx of Present Illness with labor has been admitted as of 31 weeks of until 34 weeks when she broke through tocolysis and had a spontaneous vaginal delivery Hospital Course Satisfactory uneventful Home Meds Active Scripts Acetaminophen* (Tylophen*) 500 Mg Capsule, 1 CAP PO Q6H Y for PAIN AND OR ELEVATED TEMP, #30 CAP Prov:NICK AZEVEDO PA-C 04/03/17 Follow-up Plan instruction given recommended to make appointment to be seen at the clinic in 2 weeks Primary Care Provider MD JENIFER Degroot HORMOZ MD Sep 13, 2017 14:10
== END 2017-09-13 15:30 | disposition home or self-care (01) | DRG 775 ==
LOC: OBT 10:08 → L-D 10:08 → OBG 12:05 → OBT 12:05 → L-D 09-09 15:45 → PP1 09-11 11:23
PROVIDERS: ADMIT Obstetrics & Gynecology; ATTEND Obstetrics & Gynecology
PROC: 10E0XZZ Delivery of Products of Conception, External Approach (ICD-10-PCS; principal; 2017-08-21)
DX: O60.14X0 Preterm labor third trimester with preterm delivery third trimester, not applicable or unspecified (principal); O26.873 Cervical shortening, third trimester; Z3A.34 34 weeks gestation of pregnancy; Z37.0 Single live birth
CPT/HCPCS: 76815; 76817; 76818; 80053; 80307; 81001; 82962; 83735; 85025; 85610; 85730; 86592; 86850; 86900; 86901; 87086; 88307; 99464; G0463; J0290; J0702; J2405; J2590; J3475; J7120

== ENCOUNTER 2018-01-01 19:43 | Emergency (ER) | END 2018-01-02 05:18 | disposition home or self-care (01) ==

== ENCOUNTER 2018-10-30 14:02 | Emergency (ER) | END 2018-10-30 17:46 | disposition home or self-care (01) ==

== ENCOUNTER 2019-02-18 15:23 | Inpatient (IN) | payer OTHER ==
[~2019-02-18] VITALS: Ht 149.9 cm; Wt 58.6 kg
[~2019-02-18 15:23] MED LIST changes: +CEPH-443 PO
[2019-02-18 15:59] VITALS: Ht 149.9 cm; Wt 58.6 kg
[2019-02-18] MEDS ORDERED: LACTATED RINGER'S 1,000 ML IV SCH (16:30)
[2019-02-18] MEDS ORDERED: TERBUTALINE 1 MG/ML INJ SC ONE (16:30)
[2019-02-18] MEDS ORDERED: MAGNESIUM SULFATE 4 GM/100 ML 100 ML IV ONE (18:00)
[2019-02-18] MEDS: LACTATED RINGER'S 1,000 ML IV SCH (18:30)
--- NOTE | 2019-02-18 18:32 | HP ---
Date/Time of Note Date/Time of Note DATE: 02/18/19 TIME: 18:29 OB - History Hx of Present : 5 Para: 3 Care: Good Care Ultrasounds: Normal mid trimester US Obstetrical Complications: None Medical Complications: None Past Family/Social History * Past Medical, Surgical, Family and Obstetric Histories reviewed from chart. OB Admission Exam Physical Exam Abdomen: WNL Cervical Dilatation: Fingertip Effacement: 75% Station: Ballotable Membranes: Intact Heart Rate: 140's Accelerations: Accelerations Present Decelerations: No Decelerations Varibility: Marked Contractions on Admission: 6-10 Minutes Apart OB Assessment/Plan Reason for admission: observation Other Assessment: PMH Denies PSH 1 previous c/section Plan: Expectant Management Other plan: 1.Prenatalogy consult 2.Mg 3.Steroids 4.Neonatalogy RAMONITA BABIN M.D. Feb 18, 2019 18:32
[2019-02-18] MEDS: MAGNESIUM SULFATE 20 GM/500 ML 500 ML IV SCH (18:54)
[2019-02-18] MEDS: BETAMET NA PHOS/AC(6 MG/ML) 2 ML INJ SYG IM SCH (20:57)
[2019-02-18] MEDS: ACETAMINOPHEN 325 MG TAB PO PRN (21:21)
[2019-02-19] MEDS: LACTATED RINGER'S 1,000 ML IV SCH ×3 (00:34→21:18)
[2019-02-19] MEDS: MAGNESIUM SULFATE 20 GM/500 ML 500 ML IV SCH ×3 (04:00→19:27)
[2019-02-19] MEDS: PRENATAL VITAMIN PO SCH (08:32)
[2019-02-19] MEDS: DOCUSATE SODIUM 100 MG CAP PO SCH (08:32)
[2019-02-19] MEDS: FERROUS SULFATE (EC) 325 MG TAB PO SCH (08:32)
[2019-02-19] MEDS: AL HYDROX/MG HYDROX/SIMETH 30 ML CUP PO PRN (12:30)
[2019-02-19] MEDS: ACETAMINOPHEN 325 MG TAB PO PRN (14:40)
[2019-02-19] MEDS ORDERED: INDOMETHACIN 50 MG PO ONE (17:00)
[2019-02-19] MEDS: BETAMET NA PHOS/AC(6 MG/ML) 2 ML INJ SYG IM SCH (18:13)
--- NOTE | 2019-02-19 20:54 | PN ---
Date/Time of Note Date/Time of Note DATE: 02/19/19 TIME: 20:40 OB Subjective Subjective Subjective Date of admission: 02/18/2019 Hospital day # 2 Patient seen and examined. She states good movement. She denies nausea, vomiting, shortness of breath, chest pain, headache, visual changes, vaginal bleeding or LOF. She is complaining irregular uterine contractions OB Objective Objective Objective General: Patient appears well, alert and oriented, NAD, appropriate mood and affect ABD: gravid, soft, non-tender. Back: No CVA tenderness (B/L) LE: Mild edema. No clubbing, cyanosis, edema, thigh or calf tenderness bilaterally FHT: 130 bpm , moderate variability with acceleration, no deceleration-category I Contractions: Irregular OB Assessment/Plan Other plan: 23 years old 5 para 3104 with single intrauterine as 30 weeks and 6 days with a DANITA of 04/24/2019 with short cervix and labor. She has history of labor at 34 weeks and 1 day, previous delivery with two 1) PNC: - FHR: Reassuring. No sign of metabolic acidosis- Category I - Contractions: Irregular - Continuous EFM, toco - Weekly weight - Tdap vaccine tomorrow - Continue ferrous sulfate 325 mg daily, vitamin and calcium citrate 2) labor, short cervix with funneling and history of delivery at 34 weeks and 1 day: - Ultrasound performed, cervical length of 4 mm. Cervix is 3.3 cm open - She is currently on magnesium sulfate, was on 2 g, decreased to 1 gram due to mag level of 6.7. She has no symptom of mag toxicity at this time. Repeat magnesium level. She has received 2 dose of betamethasone, last dose at 18:09 this evening. Indocin 50 mg p.o. once and then 25 mg every 6 hours per perinatology recommendations started earlier today for regular uterine contractions. Progesterone 200 mg vaginally ordered NICOLETTE NUÑEZ Feb 19, 2019 20:52
[2019-02-19] MEDS ORDERED: PROGESTERONE 100 MG CAP PO ONE (23:30)
[2019-02-19] MEDS ORDERED: DIPHTH/TET/ACEL PERTUSS (ADULT) 0.5 ML VIAL IM* ONE (23:30)
[2019-02-20] MEDS: INDOMETHACIN 25 MG PO SCH ×4 (00:18→17:32)
[2019-02-20] MEDS: LACTATED RINGER'S 1,000 ML IV SCH ×3 (05:00→17:32)
[2019-02-20] MEDS: DOCUSATE SODIUM 100 MG CAP PO SCH (08:07)
[2019-02-20] MEDS: FERROUS SULFATE (EC) 325 MG TAB PO SCH (08:07)
[2019-02-20] MEDS: PRENATAL VITAMIN PO SCH (08:07)
--- NOTE | 2019-02-20 15:51 | CONS ---
Consultation Date/Type/Reason Admit Date/Time Feb 18, 2019 at 17:30 Date of Consultation: Feb 20, 2019 Type of Consult Neonatology Reason for Consultation labor Requesting Provider: NICOLETTE NUÑEZ Date/Time of Note DATE: 02/20/19 TIME: 15:47 Hx of Present Illness Asked to consult on this lady admitted for labor at on 02/19 2019. She was admitted on 02/18 for labor there is a cervix open 3.3 mm. She is 5 para 1 with 3 term and 4 living infants, and presently on today 02/20 is 31-week gestation. The estimated weight on 02/18 was 1899 g She is 23-year-old blood type O+ RPR nonreactive hepatitis B surface antigen nonreactive GBS not done. Spoke to her with the help of telephone front loader residential driver and explained the risks related to prematurity such as her neurodevelopmental problems compared to full- term babies but meaning that not every premature baby has these problems. The baby is at risk for respiratory problems intracranial hemorrhage feeding difficulties including necrotizing enterocolitis, glucose and electrolyte disturbances, hyperbilirubinemia, ROP and long-term neurodevelopmental problems. Baby may have feeding problems with the fetus feeding and gavage feeding, and may need procedures such as umbilical venous catheterization peripheral arterial line placement and central line placement for feeding as well as spinal tap in case of infection. Possible blood transfusions. All these things were extensively discussed with the help of the front loader residential driver and all questions at the end at the end of the interview where answered to mother's satisfaction. Thank you for allowing me to assist in the care of this family. Past Medical History Home Meds Active Scripts Acetaminophen* (Tylophen*) 500 Mg Capsule, 1 CAP PO Q6H PRN for PAIN AND OR ELEVATED TEMP, #20 CAP Prov:JERAD RICE PA-C 10/30/18 Acetaminophen* (Tylophen*) 500 Mg Capsule, 2 CAP PO Q8H PRN for PAIN AND OR ELEVATED TEMP, #20 CAP Prov:JUANY,RAZIA 01/02/18 Cephalexin* (Keflex*) 500 Mg Capsule, 500 MG PO TID for 7 Days, CAP Prov:JUANY,RAZIA 01/02/18 Acetaminophen* (Tylophen*) 500 Mg Capsule, 1 CAP PO Q6H PRN for PAIN AND OR ELEVATED TEMP, #30 CAP Prov:NICK AZEVEDO PA-C 04/03/17 Medications Current Medications Lactated Ringer's 1,000 ml @ 125 mls/hr Q8H IV Last administered on 02/20/19 05:00; Admin Dose 125 MLS/HR; Start 02/18/19 at 18:00 Magnesium Sulfate 500 ml @ 25 mls/hr Q20H IV Last administered on 02/19/19 19:27; Admin Dose 25 MLS/HR; Start 02/18/19 at 18:00; Stop 02/20/19 at 16:00 Acetaminophen (Tylenol Tab) 650 mg Q6H PRN PO MILD PAIN(1-3)OR ELEVATED TEMP Last administered on 02/19/19at 14:40; Admin Dose 650 MG; Start 02/18/19 at 21:00 Al Hydrox/Mg Hydrox/Simethicone (Mag-Al Plus) 30 ml Q6H PRN PO GASTROINTESTINAL UPSET Last administered on 02/19/19 12:30; Admin Dose 30 ML; Start 02/18/19 at 21:00 Prenat Multivit/ Diesel Mechanic Apprentice/Iron/Folic Ac () 1 tab DAILY PO Last administered on 02/20/19 08:07; Admin Dose 1 TAB; Start 02/19/19 at 09:00 Ferrous Sulfate (Ferrous Sulfate (Ec)) 325 mg DAILY PO Last administered on 02/20/19 08:07; Admin Dose 325 MG; Start 02/19/19 at 09:00 Docusate Sodium (Colace) 100 mg DAILY PO Last administered on 02/20/19 08:07; Admin Dose 100 MG; Start 02/19/19 at 09:00 Indomethacin (Indocin) 25 mg Q6 PO Last administered on 02/20/19at 11:37; Admin Dose 25 MG; Start 02/20/19 at 00:00; Stop 02/21/19 at 15:00 Progesterone (Prometrium) 200 mg HS PO ; Start 02/20/19 at 21:00 Nifedipine (Procardia) 10 mg Q8 PO ; Start 02/20/19 at 18:00 Allergies: Coded Allergies: No Known Drug Allergies (Verified Allergy, Unknown, 01/01/18) Social History Smoking Status: Never smoker Exam/Review of Systems Exam Vitals Vital Signs Date Temp Pulse Resp B/P (MAP) Pulse Ox O2 O2 Flow FiO2 Time Delivery Rate 02/18/19 98.7 22:57 Intake and Output 02/19/19 02/19/19 02/20/19 1515:00 23:00 07:00 IntakeIntake Total 1350 ml 875 ml 1450 ml OutputOutput Total 1500 ml 400 ml BalanceBalance -150 ml 475 ml 1450 ml Results Result Diagram: 02/19/19 0006 02/19/19 1130 Results 24hrs Laboratory Tests Test 02/19/19 18:34 02/20/19 00:34 02/20/19 06:18 02/20/19 06:46 Magnesium Level 5.7 *H 5.0 H 5.3 *H Lab Scanned Report REFERENCE LAB Test 02/20/19 11:50 Magnesium Level 5.1 *H Medications Medication Current Medications Lactated Ringer's 1,000 ml @ 125 mls/hr Q8H IV Last administered on 02/20/19 05:00; Admin Dose 125 MLS/HR; Start 02/18/19 at 18:00 Magnesium Sulfate 500 ml @ 25 mls/hr Q20H IV Last administered on 02/19/19 19:27; Admin Dose 25 MLS/HR; Start 02/18/19 at 18:00; Stop 02/20/19 at 16:00 Acetaminophen (Tylenol Tab) 650 mg Q6H PRN PO MILD PAIN(1-3)OR ELEVATED TEMP Last administered on 02/19/19at 14:40; Admin Dose 650 MG; Start 02/18/19 at 21:00 Al Hydrox/Mg Hydrox/Simethicone (Mag-Al Plus) 30 ml Q6H PRN PO GASTROINTESTINAL UPSET Last administered on 02/19/19at 12:30; Admin Dose 30 ML; Start 02/18/19 at 21:00 Prenat Multivit/ Cashion/Iron/Folic Ac () 1 tab DAILY PO Last administered on 02/20/19 08:07; Admin Dose 1 TAB; Start 02/19/19 at 09:00 Ferrous Sulfate (Ferrous Sulfate (Ec)) 325 mg DAILY PO Last administered on 02/20/19 08:07; Admin Dose 325 MG; Start 02/19/19 at 09:00 Docusate Sodium (Colace) 100 mg DAILY PO Last administered on 3/27/19at 08:07; Admin Dose 100 MG; Start 02/19/19 at 09:00 Indomethacin (Indocin) 25 mg Q6 PO Last administered on 02/20/19at 11:37; Admin Dose 25 MG; Start 02/20/19 at 00:00; Stop 02/21/19 at 15:00 Progesterone (Prometrium) 200 mg HS PO ; Start 02/20/19 at 21:00 Nifedipine (Procardia) 10 mg Q8 PO ; Start 02/20/19 at 18:00 MARIBEL MULLER Feb 20, 2019 15:51
[2019-02-20] MEDS: NIFEdipine 10 MG CAP PO SCH ×2 (17:32→22:22)
[2019-02-20] MEDS: PROGESTERONE 100 MG CAP PO SCH (21:43)
--- NOTE | 2019-02-20 21:53 | PN ---
Date/Time of Note Date/Time of Note DATE: 02/20/19 TIME: 21:46 OB Subjective Subjective Subjective Date of admission: 02/18/2019 Hospital day # 3 Patient seen and examined. She states good movement. She denies nausea, vomiting, shortness of breath, chest pain, headache, visual changes, vaginal bleeding or LOF. She is complaining irregular uterine contractions OB Objective Objective Objective General: Patient appears well, alert and oriented, NAD, appropriate mood and affect ABD: gravid, soft, non-tender. Back: No CVA tenderness (B/L) LE: Mild edema. No clubbing, cyanosis, edema, thigh or calf tenderness bilaterally FHT: 135 bpm , moderate variability with acceleration, no deceleration-category I + uterine irritability OB Assessment/Plan Other plan: 23 years old 5 para 3104 with single intrauterine as 31 weeks (DANITA of 04/24/2019) with short cervix and labor. She has history of labor at 34 weeks and 1 day, previous delivery with two 1) PNC: - FHR: Reassuring. No sign of metabolic acidosis- Category I - NST q8 hrs - Weekly weight - Tdap vaccine given-02/20/19 - Continue ferrous sulfate 325 mg daily, vitamin and calcium citrate 2) labor, short cervix with funneling and history of delivery at 34 weeks and 1 day: - Ultrasound performed, cervical length of 4 mm. Cervix is 3.3 cm open - She is s/p receiving betamethasonex2 (on 02/18 and ) Indocin. She is currently on Procardia 10 mg every 8 hours and progesterone 200 mg vaginally ordered NICOLETTE NUÑEZ Feb 20, 2019 21:53
[2019-02-21] MEDS: INDOMETHACIN 25 MG PO SCH ×4 (00:25→17:59)
--- NOTE | 2019-02-21 03:59 | CONS ---
DATE OF ADMISSION: 02/18/2019 DATE OF CONSULTATION: 02/19/2019 I was informed about this patient who presented for labor on the , she was 30 weeks and 6 days. Ultrasound initially read the cervix to be 3 mm open; however, after I reviewed the ultrasoun d, there is about 2 cm of internal os is open with funneling and there is only 4 mm of cervix left, s o transvaginal cervical length is really 4 mm. Mom currently on magnesium sulfate, receiving betamethasone. RECOMMENDATIONS: 1. Continue with the magnesium sulfate 24 hours after the last dose of betamethasone. The patient i s to stay in house secondary to very short cervix and prematurity until at least 34 weeks. 2. If needed, Indocin can be started for 2 days maximum 50 mg load and 25 every 6 hours for 48 hour s. 3. I spoke to Dr. Nuñez to that effect. Dictated By: LAM COLE MD ST/NTS Conf#: [id number] DID#: [id number] CC: NICOLETTE NUÑEZ MD;*EndCC*
[2019-02-21] MEDS: NIFEdipine 10 MG CAP PO SCH ×3 (06:21→22:16)
[2019-02-21] MEDS: LACTATED RINGER'S 1,000 ML IV SCH ×3 (06:22→19:15)
[2019-02-21] MEDS: PRENATAL VITAMIN PO SCH (09:23)
[2019-02-21] MEDS: FERROUS SULFATE (EC) 325 MG TAB PO SCH (09:23)
[2019-02-21] MEDS: DOCUSATE SODIUM 100 MG CAP PO SCH (09:23)
--- NOTE | 2019-02-21 14:14 | QN ---
Documentation Comment Denies any complaint. Comfortable in bed. Denies any leaking of fluid, vaginal bleeding decreased movement. Physical examination: General appearance: Alert and oriented x4 does not appear to be in any acute distress Abdomen: Soft, gravid, fundal height consider gestational age, no tenderness, no redness, no guarding no rigidity NST: Cat 1. Occasional rate contraction on the monitor noted Extremities: No calf tenderness, no click no edema no cord palpable Assessment: IUP at 31 weeks and 1 day Admitted for short cervix Status post steroids and magnesium Currently receiving progesterone vaginal suppository On Indocin and Procardia Doing well asymptomatic Continue routine inpatient care Urine culture pending Stop Indocin 48 hours after start due to risk of oligohydramnios LESLIE SHAH MD Feb 21, 2019 14:14
[2019-02-21] MEDS: PROGESTERONE 100 MG CAP PO SCH (22:15)
[2019-02-22] MEDS: INDOMETHACIN 25 MG PO SCH (00:31)
[2019-02-22] MEDS: NIFEdipine 10 MG CAP PO SCH ×3 (05:58→21:45)
[2019-02-22] MEDS: LACTATED RINGER'S 1,000 ML IV SCH ×2 (07:28→21:45)
[2019-02-22] MEDS: DOCUSATE SODIUM 100 MG CAP PO SCH (08:50)
[2019-02-22] MEDS: FERROUS SULFATE (EC) 325 MG TAB PO SCH (08:50)
[2019-02-22] MEDS: PRENATAL VITAMIN PO SCH (08:50)
--- NOTE | 2019-02-22 12:33 | QN ---
Documentation Comment no c/o pain or leaking fluid EFM 3-4 UC' per hour but asymptomatic A IUP 31w2d x2 previous C/S ,hx of PTB at 34w1d polyhydroamnios s/p indocin, magnesium sulfate bmz P continue current management with progesterone and procardia KYLAH GUEVARA MD Feb 22, 2019 12:33
[2019-02-22] MEDS: PROGESTERONE 100 MG CAP PO SCH (21:45)
[2019-02-23] MEDS: LACTATED RINGER'S 1,000 ML IV SCH (01:23)
[2019-02-23] MEDS: AL HYDROX/MG HYDROX/SIMETH 30 ML CUP PO PRN (05:38)
[2019-02-23] MEDS: NIFEdipine 10 MG CAP PO SCH ×3 (05:38→21:34)
[2019-02-23] MEDS: DOCUSATE SODIUM 100 MG CAP PO SCH (09:01)
[2019-02-23] MEDS: FERROUS SULFATE (EC) 325 MG TAB PO SCH (09:02)
[2019-02-23] MEDS: PRENATAL VITAMIN PO SCH (09:02)
[2019-02-23] MEDS: PROGESTERONE 100 MG CAP PO SCH (21:17)
[2019-02-24] MEDS: NIFEdipine 10 MG CAP PO SCH ×3 (05:34→21:59)
[2019-02-24] MEDS: FERROUS SULFATE (EC) 325 MG TAB PO SCH (08:31)
[2019-02-24] MEDS: PRENATAL VITAMIN PO SCH (08:31)
[2019-02-24] MEDS: DOCUSATE SODIUM 100 MG CAP PO SCH (08:31)
--- NOTE | 2019-02-24 11:06 | PN ---
Date/Time of Note Date/Time of Note DATE: 02/24/19 TIME: 11:02 OB Subjective Subjective Subjective Date of admission: 02/18/2019 Hospital day # 7 Patient seen and examined. She states good movement. She denies nausea, vomiting, shortness of breath, chest pain, headache, visual changes, vaginal bleeding, uterine contractions or LOF. OB Objective Objective Objective General: Patient appears well, alert and oriented, NAD, appropriate mood and affect ABD: gravid, soft, non-tender. Back: No CVA tenderness (B/L) LE: Mild edema. No clubbing, cyanosis, edema, thigh or calf tenderness bilaterally FHT: 130 bpm , moderate variability with acceleration, no deceleration-category I UCS: None OB Assessment/Plan Other plan: 23 years old 5 para 3104 with single intrauterine as 31 weeks and 4 days (DANITA of 04/24/2019) with short cervix, oligohydramnios and labor. She has history of labor at 34 weeks and 1 day, previous delivery with two 1) PNC: - FHR: Reassuring. No sign of metabolic acidosis- Category I - NST q8 hrs - Weekly weight - 1 hour GCT 137, 3-hour GTT within normal limits - Tdap vaccine given-02/20/19 - Continue ferrous sulfate 325 mg daily, vitamin and calcium citrate 2) labor, short cervix with funneling and history of delivery at 34 weeks and 1 day: - Ultrasound performed, cervical length of 4 mm. Cervix is 3.3 cm open - She is s/p receiving betamethasonex2 (on 02/18 and ) and Indocin for 48 hrs. She is currently on Procardia 10 mg every 8 hours and progesterone 200 mg vaginally - Continue in-house management and close observation until 34 weeks NICOLETTE NUÑEZ Feb 24, 2019 11:06
--- NOTE | 2019-02-24 21:13 | QN ---
Documentation Comment This is a late entry note for 02/23/2019 Patient is 23 yo at 31 weeks and 3 days of gestation DANITA of 04/24/2019 admitted with short cervix ( 2 cm of internal os is open with funneling and there is only 4 mm of cervix left, so transvaginal cervical length is 4 mm ) Polyhydramnios Amniotic fluid index = 28 cm Hx of PTD at 34w1d Previous C/S X2 Hx of X 2 She is s/p betamethasone for lung maturity S/p Mgso4 for neuro-protection S/p Indocin She is currently on Procardia and progesterone vaginally Patient has no complains today. She reports positive movement, denies leaking fluid or vaginal bleeding Vital signs stable A/P; labor, short cervix with funneling and history of delivery: Continue with Procardia 10 mg every 8 hours and progesterone 200 mg vaginally Continue with present management Perinatology has seen the patient and recommend in house management until 34 weeks of gestation HUNTER MAY MD Feb 24, 2019 21:13
[2019-02-24] MEDS: PROGESTERONE 100 MG CAP PO SCH (21:59)
[2019-02-25] MEDS: NIFEdipine 10 MG CAP PO SCH ×3 (05:40→22:08)
[2019-02-25] MEDS: FERROUS SULFATE (EC) 325 MG TAB PO SCH (08:56)
[2019-02-25] MEDS: PRENATAL VITAMIN PO SCH (08:56)
[2019-02-25] MEDS: DOCUSATE SODIUM 100 MG CAP PO SCH (08:56)
[2019-02-25] MEDS: PROGESTERONE 100 MG CAP PO SCH (22:08)
[2019-02-26] MEDS: NIFEdipine 10 MG CAP PO SCH ×3 (05:53→22:07)
[2019-02-26] MEDS: DOCUSATE SODIUM 100 MG CAP PO SCH (08:46)
[2019-02-26] MEDS: PRENATAL VITAMIN PO SCH (08:46)
[2019-02-26] MEDS: FERROUS SULFATE (EC) 325 MG TAB PO SCH (08:46)
--- NOTE | 2019-02-26 10:16 | PN ---
Date/Time of Note Date/Time of Note DATE: 02/26/19 TIME: 10:14 OB Subjective Subjective Subjective Late Entry Note Pt seen on 02/25/19 Date of admission: 02/18/2019 Hospital day # 7 Patient seen and examined. She states good movement. She denies nausea, vomiting, shortness of breath, chest pain, headache, visual changes, vaginal bleeding, uterine contractions or LOF. OB Objective Objective Objective General: Patient appears well, alert and oriented, NAD, appropriate mood and affect ABD: gravid, soft, non-tender. Back: No CVA tenderness (B/L) LE: Mild edema. No clubbing, cyanosis, edema, thigh or calf tenderness bilaterally FHT: 130 bpm , moderate variability with acceleration, no deceleration-category I UCS: None OB Assessment/Plan Other plan: 23 years old 5 para 3104 with single intrauterine as 31 weeks and 4 days (DANIAT of 04/24/2019) with short cervix, oligohydramnios and labor. She has history of labor at 34 weeks and 2 day, previous delivery with two 1) PNC: - FHR: Reassuring. No sign of metabolic acidosis- Category I - NST q8 hrs - Weekly weight - 1 hour GCT 137, 3-hour GTT normal - Tdap vaccine given-02/20/19 - Continue ferrous sulfate 325 mg daily, vitamin and calcium citrate 2) labor, short cervix with funneling and history of delivery at 34 weeks and 1 day: - Ultrasound performed, cervical length of 4 mm. Cervix is 3.3 cm open - She is s/p receiving betamethasonex2 (on 02/18 and ) and Indocin for 48 hrs. She is currently on Procardia 10 mg every 8 hours and progesterone 200 mg vaginally - Continue in-house management and close observation until 34 weeks NICOLETTE NUÑEZ Feb 26, 2019 10:16
--- NOTE | 2019-02-26 10:18 | PN ---
Date/Time of Note Date/Time of Note DATE: 02/26/19 TIME: 10:16 OB Subjective Subjective Subjective Date of admission: 02/18/2019 Hospital day # 8 Patient seen and examined. She states good movement. She denies nausea, vomiting, shortness of breath, chest pain, headache, visual changes, vaginal bleeding, uterine contractions or LOF. OB Objective Objective Objective General: Patient appears well, alert and oriented, NAD, appropriate mood and affect ABD: gravid, soft, non-tender. Back: No CVA tenderness (B/L) LE: Mild edema. No clubbing, cyanosis, edema, thigh or calf tenderness bilaterally FHT: 135 bpm, moderate variability with acceleration, no deceleration-category I UCS: None OB Assessment/Plan Other plan: 23 years old 5 para 3104 with single intrauterine as 31 weeks and 5 days (DANITA of 04/24/2019) with short cervix, polyhydramnios and labor. She has history of labor at 34 weeks and 2 day, previous delivery with two 1) PNC: - FHR: Reassuring. No sign of metabolic acidosis- Category I - NST q8 hrs - Weekly weight - 1 hour GCT 137, 3-hour GTT normal - Tdap vaccine given-02/20/19 - Continue ferrous sulfate 325 mg daily, vitamin and calcium citrate - US for BRITTNI ordered 2) labor, short cervix with funneling and history of delivery at 34 weeks and 1 day: - Ultrasound performed, cervical length of 4 mm. Cervix is 3.3 cm open - She is s/p receiving betamethasonex2 (on 02/18 and ) and Indocin for 48 hrs. She is currently on Procardia 10 mg every 8 hours and progesterone 200 mg vaginally - Continue in-house management and close observation until 34 weeks NICOLETTE NUÑEZ Feb 26, 2019 10:18
[2019-02-26] MEDS: PROGESTERONE 100 MG CAP PO SCH (22:06)
[2019-02-27] MEDS: NIFEdipine 10 MG CAP PO SCH ×3 (05:42→22:13)
[2019-02-27] MEDS: PRENATAL VITAMIN PO SCH (10:25)
[2019-02-27] MEDS: FERROUS SULFATE (EC) 325 MG TAB PO SCH (10:25)
[2019-02-27] MEDS: DOCUSATE SODIUM 100 MG CAP PO SCH (10:26)
--- NOTE | 2019-02-27 18:15 | PN ---
Date/Time of Note Date/Time of Note DATE: 02/27/19 TIME: 18:11 OB Subjective Subjective Subjective Date of admission: 02/18/2019 Hospital day # 9 Patient seen and examined. She states good movement. She denies nausea, vomiting, shortness of breath, chest pain, headache, visual changes, vaginal bleeding, uterine contractions or LOF. OB Objective Objective Objective Vital sign: Blood pressure 106/62, pulse rate 68/minutes, respiratory rate 16/minutes, temperature 98.6 General: Patient appears well, alert and oriented, NAD, appropriate mood and affect ABD: gravid, soft, non-tender. Back: No CVA tenderness (B/L) LE: Mild edema. No clubbing, cyanosis, edema, thigh or calf tenderness bilaterally FHT: 130 bpm, moderate variability with acceleration, no deceleration-category I UCS: None OB Assessment/Plan Other plan: 23 years old 5 para 3104 with single intrauterine as 31 weeks and 6 days (DANITA of 04/24/2019) with short cervix, polyhydramnios and labor. She has history of labor at 34 weeks and 2 day, previous delivery with two 1) PNC: - FHR: Reassuring. No sign of metabolic acidosis- Category I - NST q8 hrs - Weekly weight - 1 hour GCT 137, 3-hour GTT normal - Tdap vaccine given-02/20/19 - Continue ferrous sulfate 325 mg daily, vitamin and calcium citrate - US performed yesterday, BRITTNI of 20.9 which decreasing compared to previous ultrasound 2) labor, short cervix with funneling and history of delivery at 34 weeks and 1 day: - Ultrasound performed, cervical length of 4 mm. Cervix is 3.3 cm open - S/p receiving betamethasonex2 (on 02/18 and ) and Indocin for 48 hrs. She is currently on Procardia 10 mg every 8 hours and progesterone 200 mg vaginally - Continue in-house management and close observation until 34 weeks NICOLETTE NUÑEZ Feb 27, 2019 18:15
[2019-02-27] MEDS: PROGESTERONE 100 MG CAP PO SCH (22:13)
[2019-02-28] MEDS: NIFEdipine 10 MG CAP PO SCH ×3 (06:09→21:56)
[2019-02-28] MEDS: PRENATAL VITAMIN PO SCH (10:01)
[2019-02-28] MEDS: FERROUS SULFATE (EC) 325 MG TAB PO SCH (10:02)
[2019-02-28] MEDS: DOCUSATE SODIUM 100 MG CAP PO SCH (10:02)
[2019-02-28] MEDS: PROGESTERONE 100 MG CAP PO SCH (21:56)
[2019-03-01] MEDS: NIFEdipine 10 MG CAP PO SCH ×3 (05:54→22:00)
[2019-03-01] MEDS: PRENATAL VITAMIN PO SCH (09:05)
[2019-03-01] MEDS: FERROUS SULFATE (EC) 325 MG TAB PO SCH (09:05)
[2019-03-01] MEDS: DOCUSATE SODIUM 100 MG CAP PO SCH (09:05)
--- NOTE | 2019-03-01 18:46 | QN ---
Documentation Comment no symptoms of pain even she has occ Uc's 4x/1hr lat u/s Ciera 20.9 from 28 on 02/26/19 FFN neg CVL 0.4cm funneling + 2.7cm A IUP 32w2d short cervix PTL P contine current regimen with procardia and progesterone supp hs KYLAH GUEVARA MD Mar 01, 2019 18:46
[2019-03-01] MEDS: PROGESTERONE 100 MG CAP PO SCH (21:59)
[2019-03-02] MEDS: NIFEdipine 10 MG CAP PO SCH ×3 (06:06→22:04)
[2019-03-02] MEDS: PRENATAL VITAMIN PO SCH (08:12)
[2019-03-02] MEDS: DOCUSATE SODIUM 100 MG CAP PO SCH (08:12)
[2019-03-02] MEDS: FERROUS SULFATE (EC) 325 MG TAB PO SCH (08:12)
--- NOTE | 2019-03-02 10:53 | PN ---
Date/Time of Note Date/Time of Note DATE: 03/02/19 TIME: 10:52 OB Subjective Subjective Subjective Date of admission: 02/18/2019 Hospital day # 12 Patient seen and examined. She states good movement. She denies nausea, vomiting, shortness of breath, chest pain, headache, visual changes, vaginal bleeding, uterine contractions or LOF. OB Objective Objective Objective Vital sign: Blood pressure 111/62, pulse rate 65/minutes, respiratory rate 16/minutes, temperature 98.5 General: Patient appears well, alert and oriented, NAD, appropriate mood and affect ABD: gravid, soft, non-tender. Back: No CVA tenderness (B/L) LE: Mild edema. No clubbing, cyanosis, edema, thigh or calf tenderness bilaterally FHT: 130 bpm, moderate variability with acceleration, no deceleration-category I UCS: None OB Assessment/Plan Other plan: 23 years old 5 para 3104 with single intrauterine as 32 weeks and 3 days (DANITA of 04/24/2019) with short cervix and labor. She has history of labor at 34 weeks and 2 day, previous delivery with two 1) PNC: - FHR: Reassuring. No sign of metabolic acidosis- Category I - NST q8 hrs - Weekly weight - Tdap vaccine given-02/20/19 - Continue ferrous sulfate 325 mg daily, vitamin and calcium citrate - US performed yesterday, BRITTNI of 20.9 which decreasing compared to previous ultrasound 2) labor, short cervix with funneling and history of delivery at 34 weeks and 1 day: - Ultrasound performed, cervical length of 4 mm. Cervix is 3.3 cm open - S/p receiving betamethasonex2 (on 02/18 and ) and Indocin for 48 hrs - She is currently on Procardia 10 mg every 8 hours and progesterone 200 mg vaginally - Continue in-house management and close observation until 34 weeks NICOLETTE NUÑEZ Mar 02, 2019 10:53
[2019-03-02] MEDS: ACETAMINOPHEN 325 MG TAB PO PRN (11:37)
[2019-03-02] MEDS: PROGESTERONE 100 MG CAP PO SCH (21:12)
[2019-03-03] MEDS: NIFEdipine 10 MG CAP PO SCH ×3 (05:36→21:11)
[2019-03-03] MEDS: DOCUSATE SODIUM 100 MG CAP PO SCH (09:22)
[2019-03-03] MEDS: FERROUS SULFATE (EC) 325 MG TAB PO SCH (09:22)
[2019-03-03] MEDS: PRENATAL VITAMIN PO SCH (09:22)
--- NOTE | 2019-03-03 12:33 | QN ---
Documentation Comment 32+wks GA with shortened cervix NSt reassuring Talpa No CTXs Pelvic deferred -->management as per perinatologist RAMONITA BABIN M.D. Mar 03, 2019 12:33
[2019-03-03] MEDS: PROGESTERONE 100 MG CAP PO SCH (21:10)
[2019-03-04] MEDS: NIFEdipine 10 MG CAP PO SCH ×3 (05:17→21:16)
[2019-03-04] MEDS: PRENATAL VITAMIN PO SCH (08:52)
[2019-03-04] MEDS: FERROUS SULFATE (EC) 325 MG TAB PO SCH (08:52)
[2019-03-04] MEDS: DOCUSATE SODIUM 100 MG CAP PO SCH (08:52)
--- NOTE | 2019-03-04 17:17 | PN ---
Date/Time of Note Date/Time of Note DATE: 03/04/19 TIME: 17:16 OB Subjective Subjective Subjective Date of admission: 02/18/2019 Hospital day # 14 Patient seen and examined. She states good movement. She denies nausea, vomiting, shortness of breath, chest pain, headache, visual changes, vaginal bleeding, uterine contractions or LOF. OB Objective Objective Objective Vital sign: Blood pressure 112/60, pulse rate 85/minutes, respiratory rate 16/minutes, temperature 98.4 General: Patient appears well, alert and oriented, NAD, appropriate mood and affect ABD: gravid, soft, non-tender. Back: No CVA tenderness (B/L) LE: Mild edema. No clubbing, cyanosis, edema, thigh or calf tenderness bilaterally FHT: 135 bpm, moderate variability with acceleration, no deceleration-category I UCS: Occasional uterine irritability OB Assessment/Plan Other plan: 23 years old 5 para 3104 with single intrauterine as 32 weeks and 5 days (DANITA of 04/24/2019) with short cervix and labor. She has history of labor at 34 weeks and 2 day, previous delivery with two 1) PNC: - FHR: Reassuring. No sign of metabolic acidosis- Category I - NST q8 hrs - Weekly weight - She received Tdap vaccine on 02/20/19 - Continue ferrous sulfate 325 mg daily, vitamin and calcium citrate 2) labor, short cervix with funneling and history of delivery at 34 weeks and 1 day: - Ultrasound performed, cervical length of 4 mm. Cervix is 3.3 cm open - S/p receiving betamethasonex2 (on 02/18 and ) and Indocin for 48 hrs - She is currently on Procardia 10 mg every 8 hours and progesterone 200 mg vaginally - Continue in-house management and close observation until 34 weeks NICOLETTE NUÑEZ Mar 04, 2019 17:17
[2019-03-04] MEDS: PROGESTERONE 100 MG CAP PO SCH (21:16)
[2019-03-05] MEDS: NIFEdipine 10 MG CAP PO SCH ×3 (06:22→21:50)
[2019-03-05] MEDS: FERROUS SULFATE (EC) 325 MG TAB PO SCH (08:53)
[2019-03-05] MEDS: DOCUSATE SODIUM 100 MG CAP PO SCH (08:53)
[2019-03-05] MEDS: PRENATAL VITAMIN PO SCH (08:54)
--- NOTE | 2019-03-05 14:01 | QN ---
Documentation Comment 32+wks GA with shortened cervix NSt reassuring Dorothy No CTXs Pelvic deferred -->management as per perinatologist RAMONITA BABIN M.D. Mar 05, 2019 14:01
[2019-03-05] MEDS: PROGESTERONE 100 MG CAP PO SCH (21:51)
[2019-03-06] MEDS: NIFEdipine 10 MG CAP PO SCH ×3 (06:21→22:19)
[2019-03-06] MEDS: FERROUS SULFATE (EC) 325 MG TAB PO SCH (08:27)
[2019-03-06] MEDS: DOCUSATE SODIUM 100 MG CAP PO SCH (08:27)
[2019-03-06] MEDS: PRENATAL VITAMIN PO SCH (08:27)
--- NOTE | 2019-03-06 13:08 | PN ---
Date/Time of Note Date/Time of Note DATE: 03/06/19 TIME: 12:59 OB Subjective Subjective Subjective Date of admission: 02/18/2019 Hospital day # 16 Patient seen and examined. She states good movement. She denies nausea, vomiting, shortness of breath, chest pain, headache, visual changes, vaginal bleeding, uterine contractions or LOF. OB Objective Objective Objective Vital sign: Blood pressure 101/60, pulse rate 78/minutes, respiratory rate 16/minutes, temperature 98.3 General: Patient appears well, alert and oriented, NAD, appropriate mood and affect ABD: gravid, soft, non-tender. Back: No CVA tenderness (B/L) LE: Mild edema. No clubbing, cyanosis, edema, thigh or calf tenderness bilaterally FHT: 140 bpm, moderate variability with acceleration, no deceleration-category I UCS: Occasional uterine irritability OB Assessment/Plan Other plan: 23 years old 5 para 3104 with single intrauterine as 33 weeks (DANITA of 04/24/2019) with short cervix and labor. She has history of labor at 34 weeks and 2 day, previous delivery with two 1) PNC: - FHR: Reassuring. No sign of metabolic acidosis- Category I - NST q8 hrs - Weekly weight - She received Tdap vaccine on 02/20/19 - Continue ferrous sulfate 325 mg daily, vitamin and calcium citrate 2) labor, short cervix with funneling and history of delivery at 34 weeks and 1 day: - Ultrasound performed, cervical length of 4 mm. Cervix is 3.3 cm open - S/p receiving betamethasonex2 (on 02/18 and ) and Indocin for 48 hrs - She is currently on Procardia 10 mg every 8 hours and progesterone 200 mg vaginally - Continue in-house management and close observation until 34 weeks NICOLETTE NUÑEZ Mar 06, 2019 13:08
[2019-03-06] MEDS: PROGESTERONE 100 MG CAP PO SCH (22:18)
[2019-03-07] MEDS: NIFEdipine 10 MG CAP PO SCH ×3 (05:55→22:20)
[2019-03-07] MEDS: DOCUSATE SODIUM 100 MG CAP PO SCH (08:57)
[2019-03-07] MEDS: PRENATAL VITAMIN PO SCH (08:57)
[2019-03-07] MEDS: FERROUS SULFATE (EC) 325 MG TAB PO SCH (08:57)
--- NOTE | 2019-03-07 15:39 | QN ---
Documentation Comment Patient is 23 yo at 33 weeks and 2 days of gestation DANITA of 04/24/2019 admitted with short cervix ( 2 cm of internal os is open with funneling and there is only 4 mm of cervix left, so transvaginal cervical length is 4 mm ) Hx of PTD at 34w1d Previous C/S X2 Hx of X 2 She is s/p betamethasone for lung maturity S/p Mgso4 for neuro-protection S/p Indocin She is currently on Procardia and progesterone vaginally Patient has no complains today. 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 LEUKOCYTE NONE SEEN EPITHELIAL CELLS RARE GRAM POS COCCI IN PAIRS 2+ GRAM POSITIVE RODS 2+ GRAM NEGATIVE RODS 2+ Morphotypes consistent with normal vaginal melissa GENITAL CULTURE Preliminary Normal rectal/vaginal melissa No beta streptococci isolated after 48 hours No Neisseria gonorrhoeae isolated after 48 hours PROCEDURE: US OB. CLINICAL INDICATION: labor TECHNIQUE: Multiple sonographic images of the pelvis were obtained. The images were reviewed on a PACS workstation. COMPARISON: 02/18/2019 FINDINGS: There is a single live intrauterine . cardiac activity is identified at a rate of 150 beats per minute. presentation is cephalic. Placenta is fundal grade 1. Biophysical profile score is as follows: Breathing 2 Movements 2 Tone 2 Fluid volume 2 Amniotic fluid index = 16.54 cm Total biophysical profile score = 8/8 IMPRESSION: Biophysical profile score = 8/8 RPTAT: HH .Wayne Coy MD, Date Time Electronically viewed and signed by .Wayne Coy MD, on 03/07/2019 11:39 .W/ CC: HUNTER MAY MD [phone] PROCEDURE: US OB. CLINICAL INDICATION: labor TECHNIQUE: Multiple sonographic images of the pelvis were obtained. The images were reviewed on a PACS workstation. COMPARISON: 02/26/2019 and 02/18/2019 FINDINGS: There is a single viable intrauterine gestation. Cardiac activity is present with 146 beats per minute. There is a cephalic presentation. Measurements were made in order to determine age. The results are as follows: BPD = 8.21 cm 33 weeks 0 days HC = 29.25 cm 32 weeks 2 days AC = 32.32 cm 36 weeks 2 days FL = 6.38 cm 33 weeks 0 days. Estimated gestational age of approximately 33 weeks 5 days. The estimated date of delivery is 04/20/2019. The EFW = 2471 g 84.1% . The placenta is fundal grade 1. There is no evidence for an abruption There is a normal amount of amniotic fluid IMPRESSION: Single viable intrauterine gestation of approximately 33 weeks 5 days. The estimated date of delivery is 04/20/2019 . .Wayne Coy MD, MD Date Time Electronically viewed and signed by .Wayne Coy MD, MD on 03/07/2019 11:38 .W/ CC: HUNTER MAY MD [phone] A/P; labor, short cervix with funneling and history of delivery: Continue with Procardia 10 mg every 8 hours and progesterone 200 mg vaginally Continue with present management Perinatology has seen the patient and recommend in house management until 34 weeks of gestation HUNTER MAY MD Mar 07, 2019 15:39
[2019-03-07] MEDS: PROGESTERONE 100 MG CAP PO SCH (22:20)
[2019-03-08] MEDS: NIFEdipine 10 MG CAP PO SCH ×3 (05:57→22:14)
[2019-03-08] MEDS: FERROUS SULFATE (EC) 325 MG TAB PO SCH (09:46)
[2019-03-08] MEDS: PRENATAL VITAMIN PO SCH (09:46)
[2019-03-08] MEDS: DOCUSATE SODIUM 100 MG CAP PO SCH (09:46)
[2019-03-08] MEDS ORDERED: NIFEdipine 10 MG CAP PO ONE (22:30)
[2019-03-08] MEDS: PROGESTERONE 100 MG CAP PO SCH (22:33)
[2019-03-08] MEDS: LACTATED RINGER'S 1,000 ML IV SCH (23:04)
[2019-03-09] MEDS ORDERED: MAGNESIUM SULFATE 4 GM/100 ML 100 ML IV ONE (01:00)
[2019-03-09] MEDS: MAGNESIUM SULFATE 20 GM/500 ML 500 ML IV SCH ×2 (01:50→12:44)
[2019-03-09] MEDS ORDERED: NIFEdipine 10 MG CAP PO SCH ×3 (06:00→17:30)
[2019-03-09] MEDS: FERROUS SULFATE (EC) 325 MG TAB PO SCH (09:00)
[2019-03-09] MEDS: LACTATED RINGER'S 1,000 ML IV SCH ×3 (10:08→21:17)
--- NOTE | 2019-03-09 11:29 | QN ---
Documentation Comment 23y.o who had x2 c/s f/b x2 been hospitalized since 02/18/19 for short cervix and PTL been on procardia and progesterone vag supp cervix was2cm [id number] length with funneling this am I was called by RN she is mil cervix open to 3cm and patient requested to have C/S and BTL even though she had x2 explained the reson to reconsider for c/s and tubal sterilization,benifit from not immediate c/s and also option for superintendent container terminal control method. EFM showed uc spaced out no feeling of uc's P expectant management KYLAH GUEVARA MD Mar 09, 2019 11:28
[2019-03-09] MEDS: PRENATAL VITAMIN PO SCH (12:52)
[2019-03-09] MEDS: DOCUSATE SODIUM 100 MG CAP PO SCH (12:52)
[2019-03-09] MEDS: ACETAMINOPHEN 325 MG TAB PO PRN (19:53)
[2019-03-09] MEDS: PROGESTERONE 100 MG CAP PO SCH (22:14)
[2019-03-10] MEDS: NIFEdipine 10 MG CAP PO SCH ×3 (02:25→17:47)
[2019-03-10] MEDS: LACTATED RINGER'S 1,000 ML IV SCH ×3 (08:00→21:08)
[2019-03-10] MEDS: FERROUS SULFATE (EC) 325 MG TAB PO SCH (08:00)
[2019-03-10] MEDS: PRENATAL VITAMIN PO SCH (08:00)
--- NOTE | 2019-03-10 17:23 | QN ---
Documentation Comment 23 years old 5 para 3104 with single intrauterine as 33 3/7 weeks (DANITA of 04/24/2019) with short cervix and labor. She has history of labor at 34 weeks and 2 day, previous delivery with two . Ultrasound performed, cervical length of 4 mm. Cervix is 3.3 cm open She received betamethasonex2 (on 02/18 and ) and Indocin for 48 hrs. Then placed on Procardia 10 mg every 8 hours and progesterone 200 mg vaginally. She had painful irregular uterine contraction yesterday, transferred to antepartum for close monitoring. Her cervix on admission was 2 cm, yesterday exam by Dr. Orourke was 3 cm. Continue close observation NICOLETTE NUÑEZ Mar 10, 2019 17:23
[2019-03-10] MEDS ORDERED: BETAMET NA PHOS/AC(6 MG/ML) 2 ML INJ SYG IM SCH (18:00)
[2019-03-10] MEDS: DOCUSATE SODIUM 100 MG CAP PO SCH (21:07)
[2019-03-10] MEDS: PROGESTERONE 100 MG CAP PO SCH (21:51)
[2019-03-11] MEDS: LACTATED RINGER'S 1,000 ML IV SCH (01:00)
[2019-03-11] MEDS ORDERED: NIFEdipine 10 MG CAP PO SCH ×2 (02:00)
[2019-03-11] MEDS ORDERED: LACTATED RINGER'S 1,000 ML IV PRN (02:14)
[2019-03-11] MEDS ORDERED: MAGNESIUM SULFATE 4 GM/100 ML 100 ML IV ONE (02:30)
[2019-03-11] MEDS ORDERED: MAGNESIUM SULFATE 20 GM/500 ML 500 ML IV SCH (03:00)
[2019-03-11] MEDS ORDERED: LACTATED RINGER'S 1,000 ML IV SCH ×2 (03:00→17:15)
[2019-03-11] MEDS ORDERED: OXYTOCIN 30 UNITS/LR 500 ML IV PRN ×2 (06:30→17:30)
[2019-03-11] MEDS ORDERED: IBUPROFEN 600 MG TAB PO PRN (06:30)
[2019-03-11] MEDS ORDERED: METHYLERGONOVINE 0.2 MG INJ IM PRN ×2 (06:30→17:30)
[2019-03-11] MEDS ORDERED: BUTORPHANOL 2 MG INJ IV PRN (06:30)
[2019-03-11] MEDS ORDERED: CARBOPROST 250 MCG INJ IM PRN ×2 (06:30→17:30)
[2019-03-11] MEDS ORDERED: OXYTOCIN 30 UNITS/LR 500 ML IV SCH ×2 (06:30)
[2019-03-11] MEDS ORDERED: MISOPROSTOL 200 MCG TAB PR PRN ×2 (06:30→17:30)
[2019-03-11] MEDS ORDERED: LIDOCAINE 1% (MPF) 30 ML INJ INJ PRN (06:30)
[2019-03-11] MEDS ORDERED: OXYTOCIN 30 UNITS/LR 500 ML BAG IV ONE (07:00)
[2019-03-11] MEDS ORDERED: TERBUTALINE 0 ML ONE (12:50)
[2019-03-11] MEDS ORDERED: CEFAZOLIN 2 GM/50 ML (PMX) 50 ML IVPB ONE (12:54)
[2019-03-11] MEDS ORDERED: morphine SULFATE/PF (10 MG/10 ML) INJ ONE (12:56)
[2019-03-11] MEDS ORDERED: PHENYLephrine 10 MG INJ ONE (13:05)
[2019-03-11] MEDS ORDERED: OXYTOCIN 10 UNIT INJ ONE (13:10)
[2019-03-11] MEDS ORDERED: ONDANSETRON 4 MG INJ ONE (13:10)
--- NOTE | 2019-03-11 14:18 | PREAC ---
Date/Time of Note Date/Time of Note DATE: 03/11/19 TIME: 14:15 Anesthesia Eval and Record Evaluation Time Pre-Procedure Interview DATE: 03/11/19 TIME: 14:15 Age 23 Sex female NPO: 8 hrs Preoperative diagnosis IUP , breech in Labor Planned procedure emergancy Csection Past Medical History Past Medical History: None Surgery & Anesthesia Issues No known issue Meds Anticoagulation: No Beta Rudolph within 24 hr: No Reason Beta Rudolph not given: Pt. not on B-Rudolph Active Scripts Acetaminophen* (Tylophen*) 500 Mg Capsule, 1 CAP PO Q6H PRN for PAIN AND OR ELEVATED TEMP, #20 CAP Prov:JERAD RICE PA-C 10/30/18 Acetaminophen* (Tylophen*) 500 Mg Capsule, 2 CAP PO Q8H PRN for PAIN AND OR ELEVATED TEMP, #20 CAP Prov:JUANY,RAZIA 01/02/18 Cephalexin* (Keflex*) 500 Mg Capsule, 500 MG PO TID for 7 Days, CAP Prov:JUANY,RAZIA 01/02/18 Acetaminophen* (Tylophen*) 500 Mg Capsule, 1 CAP PO Q6H PRN for PAIN AND OR ELEVATED TEMP, #30 CAP Prov:NICK AZEVEDO PA-C 04/03/17 Current Medications Acetaminophen (Tylenol Tab) 650 mg Q6H PRN PO MILD PAIN(1-3)OR ELEVATED TEMP Last administered on 03/09/19 19:53; Admin Dose 650 MG; Start 02/18/19 at 21:00 Al Hydrox/Mg Hydrox/Simethicone (Mag-Al Plus) 30 ml Q6H PRN PO GASTROINTESTINAL UPSET Last administered on 02/23/19 05:38; Admin Dose 30 ML; Start 02/18/19 at 21:00 Prenat Multivit/ Physiotherapy Practice Manager/Iron/Folic Ac () 1 tab DAILY PO Last administered on 03/10/19 08:00; Admin Dose 1 TAB; Start 02/19/19 at 09:00 Ferrous Sulfate (Ferrous Sulfate (Ec)) 325 mg DAILY PO Last administered on 03/10/19 08:00; Admin Dose 325 MG; Start 02/19/19 at 09:00 Docusate Sodium (Colace) 100 mg DAILY PO Last administered on 4/13/19at 12:52; Admin Dose 100 MG; Start 02/19/19 at 09:00 Betamethasone Acet/Betameth SodPhos (Celestone Soluspan) 12 mg Q24H IM Last administered on 03/10/19at 17:43; Admin Dose 12 MG; Start 03/10/19 at 18:00; Stop 03/11/19 at 18:01 Lactated Ringer's 1,000 ml @ 125 mls/hr Q8H PRN IV when magnesium sulfate is off; Start 03/11/19 at 02:14 Lactated Ringer's 1,000 ml @ 75 mls/hr [id number] IV Last administered on 03/11/19at 02:47; Admin Dose 75 MLS/HR; Start 03/11/19 at 03:00 Magnesium Sulfate 500 ml @ 50 mls/hr Q10H IV Last administered on 03/11/19at 03:27; Admin Dose 50 MLS/HR; Start 03/11/19 at 03:00 Butorphanol Tartrate (Stadol) 2 mg Q2H PRN IV .PAIN; Start 03/11/19 at 06:30 Lidocaine (Xylocaine 1% (Mpf)) 30 ml ONCE PRN INJ .EPISIOTOMY; Start 03/11/19 at 06:30 Oxytocin/Lactated Ringer's 500 ml @ 500 mls/hr ONCE POST IV ; Start 03/11/19 at 06:30 Oxytocin/Lactated Ringer's 500 ml @ 125 mls/hr POST IV ; Start 03/11/19 at 06:30 Ibuprofen (Motrin) 600 mg ONCE PRN PO .PAIN 1-5; Start 03/11/19 at 06:30 Oxytocin/Lactated Ringer's 500 ml @ 0 mls/hr ONCE PRN IV .VAGINAL BLEEDING; Start 03/11/19 at 06:30 Methylergonovine Maleate (Methergine) 0.2 mg ONCE PRN IM .VAGINAL BLEEDING; Start 03/11/19 at 06:30 Carboprost Tromethamine (Hemabate) 250 mcg ONCE PRN IM .VAGINAL BLEEDING; Start 03/11/19 at 06:30 Misoprostol (Cytotec) 1,000 mcg ONCE PRN LA .VAGINAL BLEEDING; Start 03/11/19 at 06:30 Meds reviewed: Yes Allergies Coded Allergies: No Known Allergy (Unverified , 03/10/19) Allergies Reviewed: Yes Labs/Studies Labs Reviewed: Reviewed by anesthesiologist Result Diagram: 03/11/19 0649 Laboratory Tests 03/11/19 06:49 Blood Bank Test 03/11/19 06:49 Antibody Screen NEGATIVE Blood Type O POSITIVE Rh Immune Globulin Candidate NO test: Positive Pre-procedure Exam Last vitals BP:112/56, P:88, Spo2:100%, T:98,8 Vital Signs Date Temp Pulse Resp B/P (MAP) Pulse Ox O2 O2 Flow FiO2 Time Delivery Rate 03/09/19 98.7 19:53 Airway: Adequate mouth opening, Adequate thyromental dist Mallampati: Mallampati II Teeth: Normal Lung: Normal Heart: Normal ASA Physical Status ASA physical status: 2 Emergency: E Planned Anesthetic Neuraxial: Spinal Planned Pain Management Sub-arachniod narcotics, Parenteral pain med Pre-operative Attestations Prior to commencing anesthesia and surgery, the patient was re-evaluated, there was verification of: *The patient's identity *The results of appropriate recent lab work and preoperative vital signs *The above evaluation not changing prior to induction *Anesthetic plan, risk benefits, alternative and complications discussed with patient/family; questions answered; patient/family understands, accepts and wishes to proceed. SUKHDEEP WILKS MD Mar 11, 2019 14:18
--- NOTE | 2019-03-11 14:19 | PAC ---
Date/Time of Note Date/Time of Note DATE: 03/11/19 TIME: 14:18 Post-Anesthesia Notes Post-Anesthesia Note Last documented vital signs Vital Signs Date Temp Pulse Resp B/P (MAP) Pulse Ox O2 O2 Flow FiO2 Time Delivery Rate 03/09/19 98.7 19:53 Activity: WNL Respiratory function: WNL Cardiovascular function: WNL Mental status: Baseline Pain reasonably controlled: Yes Hydration appropriate: Yes Nausea/Vomiting absent: Yes Comments BP:112/56, P:78, Spo2:100%, T:98,8 SUKHDEEP WILKS MD Mar 11, 2019 14:19
[2019-03-11] MEDS ORDERED: ONDANSETRON 4 MG INJ IV PRN ×2 (14:30→17:30)
[2019-03-11] MEDS ORDERED: DIPHENHYDRAMINE 50 MG INJ IV PRN ×2 (14:30→17:30)
[2019-03-11] MEDS ORDERED: NALOXONE (0.4 MG/ML) INJ IV PRN (14:30)
[2019-03-11] MEDS ORDERED: morphine 2 MG INJ IV PRN (14:30)
[2019-03-11] MEDS ORDERED: TERBUTALINE 1 ML ONE (14:37)
--- NOTE | 2019-03-11 14:38 | OPPN ---
Date/Time of Note Date/Time of Note DATE: 03/11/19 TIME: 14:30 Operative Report Planned Procedure Free Text/Dictation 33w5d PTL av breesh presentation Procedure date Mar 11, 2019 Procedure(s) repeat LTCS bilateral fimbriectomy Performed by see signature line Retirement Plan Counselor: SHERON BACON MD 2nd Retirement Plan Counselor none Anesthesiologist: SUKHDEEP WILKS MD Pre-procedure diagnosis IUP 33w5d PTL x2 c/s x2 desire tubal srerilization breech presentation [id number] Anesthesia Type: [id number] spinal Post-Procedure Post-procedure diagnosis delivered normal male infant Findings Live Baby m ], Apgars [6] and 9[], weight [], position [RSA], [av breech ] presentation none[]cord. Estimated Blood Loss: 400 - 500 mls Specimen(s) none Grafts/Implant(s) none Complication(s) none KYLAH GUEVARA MD Mar 11, 2019 14:38
[2019-03-11] MEDS ORDERED: TERBUTALINE 1 MG/ML INJ SC ONE (15:00)
[2019-03-11] MEDS: KETOROLAC 30 MG INJ IV PRN (15:46)
[2019-03-11] MEDS ORDERED: ZOLPIDEM 5 MG TAB PO PRN (17:30)
[2019-03-11] MEDS ORDERED: LANOLIN HPA 1 PKT TOP PRN (17:30)
[2019-03-11] MEDS ORDERED: OXYCODONE/ACETAMINOPHEN (5/325) TAB PO PRN ×2 (17:30)
[2019-03-11] MEDS: PRENATAL VITAMIN PO SCH (17:45)
[2019-03-11] MEDS: FERROUS SULFATE (EC) 325 MG TAB PO SCH (17:45)
[2019-03-11] MEDS: DOCUSATE SODIUM 100 MG CAP PO SCH (17:45)
[2019-03-11 17:52] VITALS: BP 104/48; PULSE 85; RESP 20
[2019-03-11] MEDS: IBUPROFEN 600 MG TAB PO SCH (18:00)
[2019-03-11 20:00] VITALS: BP 97/47; PULSE 8; PULSE 80; RESP 18
[2019-03-11] MEDS: SENNA/DOCUSATE NA (8.6MG/50MG) TAB PO SCH (21:00)
[2019-03-12] VITALS: BP 98/58; PULSE 72; RESP 17
[2019-03-12] MEDS: KETOROLAC 30 MG INJ IV PRN (03:23)
[2019-03-12 04:00] VITALS: BP 95/56; PULSE 75; RESP 17
[2019-03-12] MEDS: IBUPROFEN 600 MG TAB PO SCH ×4 (06:00→18:05)
[2019-03-12 08:00] VITALS: BP 89/51; PULSE 68; RESP 18
[2019-03-12] MEDS: DOCUSATE SODIUM 100 MG CAP PO SCH (09:00)
[2019-03-12] MEDS: SENNA/DOCUSATE NA (8.6MG/50MG) TAB PO SCH ×2 (09:23→21:04)
[2019-03-12] MEDS: PRENATAL VITAMIN PO SCH (09:23)
[2019-03-12] MEDS: FERROUS SULFATE (EC) 325 MG TAB PO SCH (09:24)
[2019-03-12 12:00] VITALS: BP 99/48; PULSE 67; RESP 18
[2019-03-12 17:00] VITALS: BP 105/64; PULSE 67; RESP 18
[2019-03-12 19:50] VITALS: BP 99/58; PULSE 85; RESP 16
[2019-03-13] VITALS: BP 95/48; PULSE 71; RESP 16
[2019-03-13 04:00] VITALS: BP 105/69; PULSE 68; RESP 17
[2019-03-13] MEDS: IBUPROFEN 600 MG TAB PO SCH ×4 (06:01→18:13)
[2019-03-13 08:18] VITALS: BP 99/70; PULSE 63; RESP 20
[2019-03-13] MEDS: FERROUS SULFATE (EC) 325 MG TAB PO SCH (08:48)
[2019-03-13] MEDS: DOCUSATE SODIUM 100 MG CAP PO SCH (08:48)
[2019-03-13] MEDS: PRENATAL VITAMIN PO SCH (08:48)
[2019-03-13] MEDS: SENNA/DOCUSATE NA (8.6MG/50MG) TAB PO SCH ×2 (08:48→20:45)
[2019-03-13 12:09] VITALS: BP 110/54; PULSE 62; RESP 18
--- NOTE | 2019-03-13 15:20 | PN ---
Date/Time of Note Date/Time of Note DATE: 03/13/19 TIME: 15:18 OB Subjective Subjective Subjective Late entry note. Patient seen on 03/12/2019: POD#1 Patient is doing well. She denies nausea, vomiting, shortness of breath, chest pain, headache. She has been ambulating without difficulty, tolerating regular diet. Pain is well controlled on current medications OB Objective Objective Objective General: AAO X 3, comfortable, NAD, appropriate mood and affect. Heart: RRR +S1, +S2, no murmurs. Lungs: Clear to auscultation (B/L), no rales, rhonchi or wheezing. ABD: +BS. Soft, non-tender. Uterus 2 cm below umbilicus Incision: Clear, dry, intact. No erythema, drainage or induration. Flank: No CVA tenderness (B/L) LE: Mild edema. No clubbing, cyanosis, thigh or calf tenderness (B/L). Homans 'sign is negative OB Assessment/Plan Other plan: 23 years old 105 s/p repeat delivery delivery and bilateral tubal ligation at 33 weeks and 5 days. POD#1. She is doing well and has no complaint. She is afebrile, vital signs stable. Continue current management NICOLETTE NUÑEZ Mar 13, 2019 15:20
--- NOTE | 2019-03-13 15:24 | PN ---
Date/Time of Note Date/Time of Note DATE: 03/13/19 TIME: 15:20 OB Subjective Subjective Subjective POD#2 Patient is doing well. She denies nausea, vomiting, shortness of breath, chest pain, headache. She has been ambulating without difficulty, tolerating regular diet. Pain is well controlled on current medications OB Objective Objective Objective VS - Last 72 Hours, by Label Date Temp Pulse Resp B/P (MAP) Pulse Ox O2 O2 Flow FiO2 Time Delivery Rate 03/13/19 62 18 110/54 99 Room Air 12:09 (72) 03/13/19 98.4 63 20 99/70 (80) 98 Room Air 08:18 03/13/19 99.0 68 17 105/69 Room Air 04:00 (81) 03/13/19 98.8 71 16 95/48 (64) Room Air 00:00 03/12/19 98.7 85 16 99/58 (72) Room Air 19:50 03/12/19 97.9 67 18 105/64 98 Room Air 17:00 (78) 03/12/19 98.3 67 18 99/48 (65) 98 Room Air 12:00 03/12/19 98.4 11:50 03/12/19 98.4 68 18 89/51 (64) 97 Room Air 08:00 03/12/19 98.8 75 17 95/56 (69) 96 Room Air 04:00 03/12/19 98.5 72 17 98/58 (71) 97 Room Air 00:00 03/11/19 98.4 80 18 97/47 (64) 96 Room Air 20:00 03/11/19 98.5 85 20 104/48 98 Room Air 17:52 (66) General: AAO X 3, comfortable, NAD, appropriate mood and affect. ABD: +BS. Soft, non-tender. Uterus 2 cm below umbilicus Incision: Clear, dry, intact. No erythema, drainage or induration. Flank: No CVA tenderness (B/L) LE: Mild edema. No clubbing, cyanosis, thigh or calf tenderness (B/L). Homans 'sign is negative Laboratory Tests Test 03/12/19 08:17 White Blood Count 7.7 10^3/ul Red Blood Count 2.94 10^6/ul Hemoglobin 8.7 g/dl Hematocrit 27.5 % Mean Corpuscular Volume 93.5 fl Mean Corpuscular Hemoglobin 29.6 pg Mean Corpuscular Hemoglobin Concent 31.6 g/dl Red Cell Distribution Width 17.2 % Platelet Count 237 10^3/UL Mean Platelet Volume 10.4 fl Immature Granulocytes % 0.300 % Neutrophils % 72.0 % Lymphocytes % 19.5 % Monocytes % 6.9 % Eosinophils % 0.9 % Basophils % 0.4 % Nucleated Red Blood Cells % 0.0 /100WBC Immature Granulocytes # 0.020 10^3/ul Neutrophils # 5.6 10^3/ul Lymphocytes # 1.5 10^3/ul Monocytes # 0.5 10^3/ul Eosinophils # 0.1 10^3/ul Basophils # 0.0 10^3/ul Nucleated Red Blood Cells # 0.0 10^3/ul OB Assessment/Plan Other plan: 23 years old s/p repeat delivery delivery and bilateral tubal ligation at 33 weeks and 5 days. POD#2 - AF, VSS - Continue care - Discharge home tomorrow - Rx and instruction given - Follow up in one and 6 weeks NICOLETTE NUÑEZ Mar 13, 2019 15:24
--- NOTE | 2019-03-13 15:28 | DS ---
Date/Time of Note Date/Time of Note DATE: 03/13/19 TIME: 15:25 Obstetrical Discharge Record Final Diagnosis Final Diagnosis: delivered Other Final Diagnosis Discharge diagnosis: - labor and short cervix -Previous delivery delivery at 33 weeks and 5 days 23 years old s/p repeat delivery and bilateral tubal ligation at 33 weeks and 5 days. POD#2. She was admitted on 02/18/2019 for short cervix and labor. She received magnesium sulfate, betamethasone and Indocin. Then she was placed on vaginal progesterone and Procardia 10 mg every 8 hours daily however at 33 weeks and 5 days she went and had active labor. She has a history of 2 , however as the presentation was av breech and she desiring permanent surgical sterilization underwent repeat delivery. course is unremarkable. She is ambulating and tolerating regular diet. She is voiding without difficulty. Pain is controlled on current medication. - AF, VSS - Continue care - Discharge home tomorrow - Rx and instruction given - Follow up in one and 6 weeks Section Section: Repeat Condition on Discharge Physical Assessment Last Vitals: Vital Signs Date Temp Pulse Resp B/P (MAP) Pulse Ox O2 O2 Flow FiO2 Time Delivery Rate 03/13/19 62 18 110/54 99 Room Air 12:09 (72) 03/13/19 98.4 08:18 Voiding: Yes Bowel Movement: Yes Breast: Soft, non-tender Fundus: Firm Calf Tenderness: No Patient Condition: Stable NICOLETTE NUÑEZ Mar 13, 2019 15:28
[2019-03-13 15:58] VITALS: BP 95/56; PULSE 70; RESP 20
[2019-03-13 19:55] VITALS: BP 106/57; PULSE 60; RESP 17
[2019-03-14] MEDS: IBUPROFEN 600 MG TAB PO SCH ×3 (00:01→12:31)
[2019-03-14 04:20] VITALS: BP 101/57; PULSE 79; RESP 18
[2019-03-14 08:45] VITALS: BP 100/55; PULSE 56; RESP 18
[2019-03-14] MEDS ORDERED: DIPHTH/TET/ACEL PERTUSS (ADULT) 0.5 ML VIAL IM* ONE (09:00)
[2019-03-14] MEDS: DOCUSATE SODIUM 100 MG CAP PO SCH (09:14)
[2019-03-14] MEDS: SENNA/DOCUSATE NA (8.6MG/50MG) TAB PO SCH (09:14)
[2019-03-14] MEDS: PRENATAL VITAMIN PO SCH (09:15)
[2019-03-14] MEDS: FERROUS SULFATE (EC) 325 MG TAB PO SCH (09:15)
--- NOTE | 2019-03-14 11:34 | PN ---
Date/Time of Note Date/Time of Note DATE: 03/14/19 TIME: 11:31 OB Subjective Subjective Subjective 03/14/2018 Patient breast-feeding. Passed flatus. Ambulating. Pain well-controlled with p.o. pain medication. Urinated. Denies any complaint. OB Objective Objective Objective GA: A&O, NAD Abdomen: Soft, tenderness in the incision. Incision: Clean dry and intact with no evidence of drainage, hematoma, or cellulitis Extremities: No calf tenderness, no click no edema no cord palpable Lungs: Clear to auscultation bilaterally CV: RRR CBC & BMP 03/12/19 08:17 OB Assessment/Plan Other Assessment: s/p section POD #3 Doing well Anemia, postop, asymptomatic, ambulating without any symptoms Stable for discharge Advised to continue iron twice a day with stool softener and follow-up in 2 weeks and 6 weeks postop with primary OB office or sooner as needed LESLIE SHAH MD Mar 14, 2019 11:34
--- NOTE | 2019-03-14 11:36 | PD.PPDC ---
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
--- NOTE | 2019-03-15 03:02 | OPR ---
DATE OF OPERATION: 03/11/2019 PREOPERATIVE DIAGNOSES: 33 weeks 5 days, labor, breech presentation, status post tw o C-sections, followed by two and four tubal sterilization. POSTOPERATIVE DIAGNOSIS: 33 weeks 5 days, labor, breech presentation, status post t wo C-sections, followed by two and four tubal sterilization. OPERATION PERFORMED: Repeat low transverse section and bilateral fimbriectomy. ANESTHESIA: Spinal. ANESTHESIOLOGIST: Dr. Sukhdeep Cao. SURGEON: Solomon Orourke M.D. BINDER STRIPPER HAND: Jesus Alvarado M.D. ESTIMATED BLOOD LOSS: Approximately 500 mL. PROCEDURE: Under the proper induction of spinal anesthesia, the patient was placed in the supine pos ition. After the Archer was introduced and positioned supine, the abdomen was prepped and draped in u sual aseptic manner. A transverse incision was made along the previous incisional scar. Incision wa s carried down through the subcutaneous tissue to the anterior rectus fascia, which was incised trans versely in length of the incision. Fascial flap was created by blunt and sharp dissection of tendino us attachment and the rectus muscles split and the peritoneal cavity was entered. A transverse incis ion was made above the ureterovesical reflection. Incision was carried down, layer by layer until I reached the amniotic membrane with ruptured, clear amniotic fluid and a normal infant was bor n from the right sacral anterior position with assisted-breech extraction. Mouth and nose were clean ed and cord was delayed, clamped and then handed to the ornamental ironworker who was standing by for further care. Cord blood was obtained. The placenta was removed. Uterus was exteriorized. Uterine incisi on was closed with a #1 chromic catgut in continuous interlocking manner on the second layer us ing 0-chromic catgut, thus imbricating the first layer of closure. Incisional site was intact. Left fallopian tube was grasped and the fimbria was doubly ligated with 0-chromic catgut and the fimbria was removed and no bleeding noted. The same procedure was done on the contralateral tube. No bleede r was noted. After the abdominal cavity was irrigated, the uterus was relocated into the abdominal c avity and sponge count taken, which was correct. After recheck of the fallopian tube on each side an d the incisional site, which were intact, all the sponge counts were correct. The parietal peritoneu m was closed using 0-chromic catgut in continuous manner, muscle closed with 0-chromic catgut in cont inuous manner. Fascia closed with #1 Vicryl in continuous manner in two segments. Subcutaneous tiss ue was irrigated. This layer was approximated with a 2-0 plain in continuous manner. Skin closed wi th a 3-0 Monocryl in subcuticular manner. After Steri-Strips applied, pressure dressing was applied. Estimated blood loss was approximately 500 mL. The patient withstood the procedure well and was se nt to the recovery room in stable condition. Dictated By: SOLOMON ZHONG/SUSANNAH Conf#: [id number] DID#: [id number] CC: MARIO PANG M.D.; DONALD OLVERA MD; GLADIS AGUILERA MD; SURESH BURGESS MD; SUKHDEEP MANTILLA MD; BATSHEVA JJ MD; GISSEL MACDONALD MD; NICOLETTE NUÑEZ MD; BRYSON RHOADES MD;*EndCC*
--- NOTE | 2019-03-15 16:09 | DELSUM ---
Delivery Summary A-C Datetime Report Generated by CPN: 03/15/2019 16:09 DELIVERY PERSONNEL Gaming Dealer: Trivedi, Meg MATERNAL INFORMATION Delivery Anesthesia: None Medications in Delivery: 2 gm ancef Delivery QBL (ml): 600 Placenta Cultured: No Maternal Complications: Other RN Comments: ptl, short cervix, #3, wants tubal and c section if possible with this a fi 20.9, LABOR SUMMARY EDC: 04/24/2019 00:00 No. Babies in Womb: 1 Attempted: Yes Labor Anesthesia: None LABOR INFORMATION Reason for Induction: Not Applicable Oxytocin: N/A Group B Beta Strep: Negative Antibiotics # of Doses: 0 Steroids Given: Full Course; >24Hs before Delivery Reason Steroids Not Administered: Not Applicable MEMBRANES Membranes Rupture Method: Artificial Rupture of Membranes: 03/11/2019 12:35 Length of Rupture (hr): 0.68 Amniotic Fluid Color: Clear Amniotic Fluid Amount: Large Amniotic Fluid Odor: None STAGES OF LABOR Stage 3 hr: 0 Stage 3 min: 1 CSECTION DELIVERY Primary Indication: Breech Presentation CSection Urgency: Emergency CSection Incidence: Repeat Labor: Labor Elective: N/A CSection Incision: Lower Uterine Transverse Sterilization Procedure: [place] BABY A INFORMATION Infant Delivery Date/Time: 03/11/2019 13:16 Method of Delivery: Born in Route : No : Failed Forceps: N/A Vacuum Extraction: N/A Shoulder Dystocia : N/A SHOULDER DYSTOCIA BABY A Delivery Date/Time: 03/11/2019 13:16 PRESENTATION/POSITION BABY A Presentation: Breech Cephalic Presentation: N/A Breech Presentation: Janes PLACENTA INFORMATION BABY A Placenta Delivery Time : 03/11/2019 13:17 Placenta Method of Delivery: Manual Removal Placenta Status: Delivered SCORES BABY A Heart Rate 1 min: >100 bpm Resp Effort 1 min: Slow, Irregular Reflex Irritability 1 min: Cough/Sneeze/Pulls Away Muscle Tone 1 min: Some Flexion of Extrem Color 1 min: Blue/Pale Resuscitation Effort 1 min: Tactile Stimulation; PPV/NCPAP SCORE 1 MIN: 6 Heart Rate 5 min: >100 bpm Resp Effort 5 min: Good Cry Reflex Irritability 5 min: Cough/Sneeze/Pulls Away Muscle Tone 5 min: Active Motion Color 5 min: Body [place], Extremit Blue SCORE 5 MIN: 9 INFANT INFORMATION BABY A Gestational Age at Delivery: 33.6 Gestational Status: - <34 Weeks Infant Outcome : Liveborn Condition : Stable Sex: Male IDENTIFICATION/MEDS BABY A ID Band Number: [id number] ID Band Location: Right Leg; Left Arm Sensor Applied: No Vitamin K Given : Not Given Erythromycin Given: Deferred by Parents WEIGHT/LENGTH BABY A Birthweight (gm): 2975 Infant Weight (lb): 6 Weight (oz): 9 Length (in): 18.75 Length (cm): 47.63 CORD INFORMATION BABY A No. Cord Vessels: 3 Nuchal Cord : N/A Cord Blood Taken: Yes Infant Suction: Mouth; Nose ASSESSMENT BABY A Infant Complications: Other Infant Complications- Other: short cervix, ptl, afshin 20.9, breech Physical Findings at Delivery: Other Physical Findings- Other: premature Respirations: Appears Normal Dumper Bailer Operator/ALS Called : Yes Infant Care By: nicu team Transferred To: NICU
== END 2019-03-14 16:09 | disposition home or self-care (01) | DRG 784 ==
LOC: OBT 15:23 → L-D 15:24 → OBT 17:30 → L-D 19:36 → PP1 02-19 01:38 → L-D 03-09 09:58 → PP1 03-11 17:17
PROVIDERS: ADMIT Obstetrics & Gynecology; ATTEND Obstetrics & Gynecology
PROC: 3E0P7VZ Introduction of Hormone into Female Reproductive, Via Natural or Artificial Opening (ICD-10-PCS; 2019-02-19)
PROC: 0UB70ZZ Excision of Bilateral Fallopian Tubes, Open Approach (ICD-10-PCS; 2019-03-11)
PROC: 10D00Z1 Extraction of Products of Conception, Low, Open Approach (ICD-10-PCS; principal; 2019-03-11 13:00)
DX: O60.14X0 Preterm labor third trimester with preterm delivery third trimester, not applicable or unspecified (principal); O26.873 Cervical shortening, third trimester; O40.3XX0 Polyhydramnios, third trimester, not applicable or unspecified; O32.1XX0 Maternal care for breech presentation, not applicable or unspecified; O34.219 Maternal care for unspecified type scar from previous cesarean delivery; O90.81 Anemia of the puerperium; D64.9 Anemia, unspecified; Z37.0 Single live birth; Z3A.30 30 weeks gestation of pregnancy; Z30.2 Encounter for sterilization
CPT/HCPCS: 76815; 76816; 76817; 76818; 80053; 81003; 82731; 83735; 85025; 85384; 85610; 85730; 86592; 86850; 86900; 86901; 87081; 87340; 88302; 99464; G0463; J0690; J0702; J1885; J2274; J2405; J2590; J3105; J3475; J7120

== ENCOUNTER 2019-04-09 11:57 | Emergency (ER) | payer OTHER ==
[~2019-04-09] VITALS: Wt 70.0 kg
[~2019-04-09 11:57] MED LIST changes: -CEPH-443 PO
[2019-04-09 11:59] VITALS: BP 120/57; PULSE 82; RESP 18
--- NOTE | 2019-04-09 13:28 | ERD ---
ER Documentation Chief Complaint Chief Complaint SITE CHEK UP HPI 23-year-old female presenting with a wound check. Patient was concerned because the lateral portion of the left side of her campo has a suture coming out of it. She denies any pain. Denies fevers. Denies abdominal pain. This is her third she delivered her 1 month ago. Denies changes in urination or bowel movement. Denies medical problems. NKDA. Surgical history . Social history denies ROS All systems reviewed and are negative except as per history of present illness. Medications Home Meds Active Scripts Acetaminophen* (Tylophen*) 500 Mg Capsule, 1 CAP PO Q6H PRN for PAIN AND OR ELEVATED TEMP, #20 CAP Prov:JERAD RICE PA-C 10/30/18 Allergies Allergies: Coded Allergies: No Known Allergy (Unverified , 03/10/19) PMhx/Soc History of Surgery: Yes ( x2) Hx Alcohol Use: No Hx Substance Use: No Hx Tobacco Use: No Smoking Status: Never smoker FmHx Family History: No diabetes, No coronary disease, No other Physical Exam Vitals Vital Signs Date Temp Pulse Resp B/P (MAP) Pulse Ox O2 O2 Flow FiO2 Time Delivery Rate 04/09/19 97.7 82 18 120/57 0 11:59 (78) Physical Exam GENERAL: The patient is well-appearing, well-nourished, in no acute distress CHEST: Clear to auscultation bilaterally. There are no rales, wheezes or rhonchi. HEART: Regular rate and rhythm. No murmurs, clicks, rubs or gallops. No S3 or S4. ABDOMEN:Soft, nontender and nondistended. Good bowel sounds. No rebound or gua rding. No gross peritonitis. No gross organomegaly or masses. SKIN: site has healed appropriately.. Suture has protruded the left lateral edge of the surgical site. No surrounding erythema or purulence. No serous fluid drainage. Procedures/MDM ER course:. Sutures removed without complication. MDM: 23-year-old female presenting for wound care check. site has healed appropriately. I have low suspicion for deep tracking infection. Patient is discharged with strict ER precautions and told to follow- up with primary care within 1 to 2 days for close evaluation. Patient is told if symptoms change or worsen to return immediately to the ER. All questions answered at discharge Departure Diagnosis: Primary Impression: Encounter for wound re-check Condition: Stable Patient Instructions: Wound Check, Lac F/U (No Infection) Referrals: GISSEL FLOWER MD (PCP) Additional Instructions: FOLLOW UP WITH YOUR PRIMARY CARE PHYSICIAN TOMORROW.Return to this facility if you are not improving as expected. RICH SILVERMAN PA-C April 09, 2019 13:28
== END 2019-04-09 13:46 | disposition home or self-care (01) ==
LOC: FTE 11:57
DX: Z48.01 Encounter for change or removal of surgical wound dressing (principal)
CPT/HCPCS: 99281